=== PATIENT | male | born 1935 | race Caucasian/White ===

== ENCOUNTER → 2016-05-18 | Outpatient (CLI) | payer OTHER, MEDICARE ==
[~2016-05-18] MED LIST: IOPAMIDOL (ISOVUE 370) 100 ML BTL IV ONE
== END ==
LOC: CIMAGING 09:09
DX: I71.4 Abdominal aortic aneurysm, without rupture (principal); N20.0 Calculus of kidney
CPT/HCPCS: 74174; Q9967

== ENCOUNTER → 2017-09-02 | Outpatient (CLI) | payer OTHER, MEDICARE | LOC: BHFA 09:15 | PROVIDERS: ATTEND Internal Medicine Cardiovascular Disease | DX: R06.02 Shortness of breath (principal); I25.10 Atherosclerotic heart disease of native coronary artery without angina pectoris ==

== ENCOUNTER → 2017-09-06 | Outpatient (CLI) | payer OTHER, MEDICARE | LOC: FIMAGING 15:21 | PROVIDERS: ATTEND Internal Medicine Hematology & Oncology | DX: M79.604 Pain in right leg (principal); M79.605 Pain in left leg; M79.89 Other specified soft tissue disorders ==

== ENCOUNTER → 2017-09-13 | Outpatient (CLI) | payer OTHER, MEDICARE ==
[~2017-09-13] MED LIST changes: +GADOBUTROL 10 ML VIAL IVP ONE; -IOPAMIDOL (ISOVUE 370) 100 ML BTL IV ONE
== END ==
LOC: FIMAGING 16:50
PROVIDERS: ATTEND Internal Medicine Hematology & Oncology
DX: M16.11 Unilateral primary osteoarthritis, right hip (principal); M24.151 Other articular cartilage disorders, right hip; M84.351A Stress fracture, right femur, initial encounter for fracture; C79.51 Secondary malignant neoplasm of bone; C61 Malignant neoplasm of prostate
CPT/HCPCS: 73723; A9585

== ENCOUNTER 2018-02-07 09:02 | Inpatient (IN) | payer OTHER, MEDICARE ==
--- NOTE | 2018-02-07 09:22 | EDPHY ---
H & P Time Seen by Provider: 02/07/18 09:19 HPI/ROS: CHIEF COMPLAINT: Shortness of breath HISTORY OF PRESENT ILLNESS: Worsening over the past 2 months, now can't even get up or walk to the bathroom without assistance because he gets so dyspneic. He is even short of breath at rest, symptoms are severe. Describes about a week of cough productive of white sputum, but without chest pain or fever or chills. Associated with bilateral leg edema right greater than left. His right foot so edematous that yesterday the skin split open and now he has an open wound on the dorsum. REVIEW OF SYSTEMS: Eye: no change in vision ENT: no sore throat Cardiac: no chest pain or syncope Pulmonary: HPI Abdomen: no vomiting, diarrhea, abdominal pain Musculoskeletal: Leg edema Skin: Open wound right foot on the dorsum Neuro: no headache Constitutional: no fever : no urinary symptoms A comprehensive 10 point review of systems is otherwise negative aside from elements mentioned in the history of present illness. PAST MEDICAL HISTORY: Medical history includes hypertension, hypercholesterolemia, coronary disease and vascular disease with aortic and cardiac stents, knee replacement, COPD, hypothyroid. Recent treatment for prostate cancer metastatic to bone. Social history: Here with his and son General Appearance: Alert and conversant, cooperative. Eyes: No scleral icterus. ENT, Mouth: Normal mucous membranes. Respiratory: Bilateral expiratory wheezing with dyspnea, but is able to speak at rest. Cardiovascular: Regular rate and rhythm. Gastrointestinal: Abdomen is soft and non tender. Neurological: Alert, face symmetric, normal motor and sensory in extremities. Skin: Patient has open skin wound on the dorsum of the right foot 8x8 cm but no surrounding erythema or lymphangitis or pus or drainage. Musculoskeletal: Bilateral lower extremity edema 4+ on the right and 2+ on the left. Psychiatric: Not agitated. Emergency Department course/MDM: Treat for COPD with nebulizer treatments and IV steroids. Severe shortness of breath, not able to the the get out of bed or walk any distance in the house. EKG chest x-ray D-dimer and troponin. Hospitalist admission, symptomatic wound care. I do not think he has an acute cellulitis. I think pneumonia is unlikely given symptoms, lack of fever or elevated white blood cell count. Ultrasound of the right lower leg. 1051; feels better, less wheezy. Consider treating with Lovenox empirically 1 milligram/kilogram subcu until his renal function can tolerate angio CT scanning , or until nuclear imaging is available. Discussed with patient and family and consented. Creatinine although elevated is similar to his recent baseline. Needs cardiac evaluation as an inpatient, will notify [facility]. 1349: Discussed with Dana for [facility]. Smoking Status: Former smoker Constitutional: Initial Vital Signs Temperature (C) 36.5 C 02/07/18 09:17 Heart Rate 75 02/07/18 09:17 Respiratory Rate 18 02/07/18 09:17 Blood Pressure 140/115 H 02/07/18 09:17 O2 Sat (%) 92 02/07/18 09:17 O2 Delivery Mode Nasal Cannula O2 (L/minute) 3 Allergies/Adverse Reactions: No Known Allergies Allergy (Verified 02/07/18 09:13) Home Medications: Medication Instructions Recorded Atorvastatin Calcium [Lipitor 40 40 mg PO DAILY 08/31/16 mg (*)] Abiraterone Acetate [Zytiga] 500 mg PO DAILY 02/07/18 Aspirin [Aspirin 81mg (*)] 81 mg PO HS 02/07/18 Budesonide/Formoterol 80/4.5 2 puffs IH BID 02/07/18 [Symbicort 80-4.5 Mcg Inhaler] Herbals/Supplements -Info Only 1 ea PO DAILY 02/07/18 Leuprolide Acetate [Lupron Depot] 22.5 mg IM Q90D 02/07/18 Levothyroxine [Synthroid 100 mcg 100 mcg PO DAILY06 02/07/18 (*)] Tiotropium Inhaler [Spiriva 1 inh IH DAILY@12 02/07/18 Inhaler] Xgeva 1 each IJ Q30D 02/07/18 predniSONE 2.5 mg PO BID 02/07/18 Medical Decision Making - Diagnostics EKG Interpretation: 12-lead EKG interpreted by me; official reading is in computer system. My interpretation is sinus rhythm rate 95 with multi formed PVC and old anterior OH. Imaging Results: Imaging Impressions Chest X-Ray 02/07/18 09:33 Impression: 1. Bibasilar opacities, worse on the right, probably representing tiny effusions with pneumonia to be excluded clinically. 2. Osseous metastatic disease. Extremity Venous Study 02/07/18 09:34 Impression: Slightly limited study with no visible deep vein thrombosis. Findings discussed with DONNA CRAWLEY 02/07/2018 at 11:11. Imaging: Discussed imaging studies w/ call center receptionist Radiologist, I viewed and interpreted images myself Differential Diagnosis: Differential diagnosis considered for shortness of breath including but not limited to pulmonary infectious process, COPD, asthma, pulmonary embolus and congestive heart failure. Consult/Admit Bed Type: [facility] 1044 - Data Points Laboratory Results: Laboratory Results 02/07/18 09:30 02/07/18 09:30 02/07/18 02/07/18 02/07/18 09:35 09:30 09:30 WBC RBC Hgb Hct MCV MCH MCHC RDW Plt Count MPV Neut % (Auto) Lymph % (Auto) [place] % (Auto) Eos % (Auto) Baso % (Auto) Nucleat RBC Rel Count Absolute Neuts (auto) Absolute Lymphs (auto) Absolute Monos (auto) Absolute Eos (auto) Absolute Basos (auto) Absolute Nucleated RBC Immature Gran % Immature Gran # D-Dimer Sodium Potassium Chloride Carbon Dioxide Anion Gap BUN Creatinine Estimated GFR Glucose Calcium Iron 83.0 mcg/dL mcg/dL (49.0-199.0) TIBC 255 ug/dL L ug/dL (260-490) Iron Saturation 33 % % (20-55) Ferritin Pending POC Troponin I 0.11 ng/mL H ng/mL (0.00-0.08) NT-Pro-B Natriuret Pep Pending Procalcitonin Pending 02/07/18 02/07/18 02/07/18 09:30 09:30 09:30 WBC 8.55 10^3/uL 10^3/uL (3.80-9.50) RBC 3.19 10^6/uL L 10^6/uL (4.40-6.38) Hgb 10.3 g/dL L g/dL (13.7-17.5) Hct 32.0 % L % (40.0-51.0) MCV 100.3 fL H fL (81.5-99.8) MCH 32.3 pg pg (27.9-34.1) MCHC 32.2 g/dL L g/dL (32.4-36.7) RDW 13.7 % % (11.5-15.2) Plt Count 271 10^3/uL 10^3/uL (150-400) MPV 9.8 fL fL (8.7-11.7) Neut % (Auto) 78.2 % H % (39.3-74.2) Lymph % (Auto) 10.6 % L % (15.0-45.0) [place] % (Auto) 9.6 % % (4.5-13.0) Eos % (Auto) 0.8 % % (0.6-7.6) Baso % (Auto) 0.4 % % (0.3-1.7) Nucleat RBC Rel Count 0.0 % % (0.0-0.2) Absolute Neuts (auto) 6.69 10^3/uL H 10^3/uL (1.70-6.50) Absolute Lymphs (auto) 0.91 10^3/uL L 10^3/uL (1.00-3.00) Absolute Monos (auto) 0.82 10^3/uL H 10^3/uL (0.30-0.80) Absolute Eos (auto) 0.07 10^3/uL 10^3/uL (0.03-0.40) Absolute Basos (auto) 0.03 10^3/uL 10^3/uL (0.02-0.10) Absolute Nucleated RBC 0.00 10^3/uL 10^3/uL (0-0.01) Immature Gran % 0.4 % % (0.0-1.1) Immature Gran # 0.03 10^3/uL 10^3/uL (0.00-0.10) D-Dimer 3.39 ug/mLFEU H ug/mLFEU (0.00-0.50) Sodium 144 mEq/L mEq/L (135-145) Potassium 3.3 mEq/L mEq/L (3.3-5.0) Chloride 111 mEq/L H mEq/L (97-110) Carbon Dioxide 22 mEq/l mEq/l (22-31) Anion Gap 11 mEq/L mEq/L (6-14) BUN 27 mg/dL H mg/dL (7-23) Creatinine 1.6 mg/dL H mg/dL (0.7-1.3) Estimated GFR 41 Glucose 106 mg/dL H mg/dL (70-100) Calcium 8.2 mg/dL L mg/dL (8.5-10.4) Iron TIBC Iron Saturation Ferritin POC Troponin I NT-Pro-B Natriuret Pep Procalcitonin Medications Given: Discontinued Medications Albuterol (Proventil Neb) 3 ml IH EDNOW ONE Stop: 02/07/18 10:53 Last Admin: 02/07/18 11:11 Dose: 3 ml Albuterol/Ipratropium (Duoneb) 3 ml IH EDNOW ONE Stop: 02/07/18 09:34 Last Admin: 02/07/18 09:51 Dose: 3 ml Enoxaparin Sodium (Lovenox) 80 mg SC EDNOW ONE Stop: 02/07/18 10:53 Last Admin: 02/07/18 11:30 Dose: 80 mg Methylprednisolone Sodium Succinate (Solu-Medrol) 125 mg IVP EDNOW ONE Stop: 02/07/18 09:34 Last Admin: 02/07/18 09:51 Dose: 125 mg Point of Care Test Results: Chemistry 02/07/18 09:35 POC Troponin I 0.11 ng/mL H ng/mL (0.00-0.08) Departure - Departure Disposition: [facility] Inpatient Acute Clinical Impression: Chronic obstructive pulmonary disease with acute exacerbation Open wound of right foot Qualifiers: Encounter type: initial encounter Qualified Code(s): S91.301A - Unspecified open wound, right foot, initial encounter Condition: Fair
[2018-02-07] MEDS ORDERED: IPRATROPIUM/ALBUTEROL 3 ML DEYVIAL IH ONE (09:33)
[2018-02-07] MEDS ORDERED: methylPREDNISolone SOD SUCC 125 MG/2 ML VIAL IVP ONE (09:33)
[2018-02-07 09:41] LABS: PLATELET COUNT 271 10^3/uL (150-400)
--- NOTE | 2018-02-07 09:47 | CPEKG ---
Test Reason : OPEN Blood Pressure : / mmHG Vent. Rate : 088 BPM Atrial Rate : 088 BPM P-R Int : 197 ms QRS Dur : 084 ms QT Int : 392 ms P-R-T Axes : 076 044 000 degrees QTc Int : 475 ms Sinus rhythm Multiple premature complexes, vent & supraven Anterior infarct, old Confirmed by Mathew Lacey ([id number]) on 02/07/2018 9:47:10 AM Referred By: Confirmed By:Mathew Lacey
[2018-02-07] MEDS ORDERED: ENOXAPARIN 80 MG/0.8 ML SYR SC ONE (10:52)
[2018-02-07] MEDS ORDERED: ALBUTEROL 3 ML DEYVIAL IH ONE (10:52)
[2018-02-07] MEDS ORDERED: ACETAMINOPHEN 325 MG TAB PO PRN (11:15)
[2018-02-07] MEDS ORDERED: ONDANSETRON 4 MG/2 ML VIAL IVP PRN (11:15)
[2018-02-07] MEDS ORDERED: HYDROCODONE/APAP 5/325 TAB PO PRN (11:15)
[2018-02-07] MEDS ORDERED: ALBUTEROL 3 ML DEYVIAL IH PRN (11:15)
[2018-02-07] MEDS ORDERED: ONDANSETRON DISINTEGRATING 4 MG TAB PO PRN (11:15)
--- NOTE | 2018-02-07 12:47 | PDGENHP ---
History and Physical - Chief Complaint SOB - History of Present Illness 82 yo male with h/o COPD, CAD, ischemic cardiomyopathy and presents to ED with SOB. He reports increased swelling over past few days along with worsening SOB. He denies CP or chest pressure. He denies orthopnea, but reports increased LE edema. No PND. He notes weight gain, but his begs to differ , thinks his weight has been stable. He endorses cough, which is chronic and productive of sputum. Over the past month, his cough is worse with increased sputum production. He denies fevers or chills. He is followed by Dr. Martinez for his COPD. He sees Dr. Pickens for his heart disease. In addition, he has a h/o prostate cancer with bone mets and is on Zytiga. He also has h/o vascular disease and underwent endovascular repair of an abdominal aortic aneurysm History Information - Allergies/Home Medication List Allergies/Adverse Reactions: No Known Allergies Allergy (Verified 02/07/18 09:13) Home Medications: Atorvastatin Calcium [Lipitor 40 mg (*)] 40 mg PO DAILY 09/01/15 [Last Taken ] Abiraterone Acetate [Zytiga] 500 mg PO DAILY 02/07/18 [Last Taken 02/07/18] Aspirin [Aspirin 81mg (*)] 81 mg PO HS 02/07/18 [Last Taken 02/06/18] Budesonide/Formoterol 80/4.5 [Symbicort 80-4.5 Mcg Inhaler] 2 puffs IH BID 02/07 [Last Taken 02/06/18 21:00] Herbals/Supplements -Info Only 1 ea PO DAILY 02/07/18 [Last Taken Unknown] Leuprolide Acetate [Lupron Depot] 22.5 mg IM Q90D 02/07/18 [Last Taken 2 Months Ago ~12/08/17] Levothyroxine [Synthroid 100 mcg (*)] 100 mcg PO DAILY06 02/07/18 [Last Taken ] Tiotropium Inhaler [Spiriva Inhaler] 1 inh IH DAILY@12 02/07/18 [Last Taken ] Xgeva 1 each IJ Q30D 02/07/18 [Last Taken 01/31/18] predniSONE 2.5 mg PO BID 02/07/18 [Last Taken 02/06/18 21:00] I have personally reviewed and updated: family history, medical history, social history, surgical history - Past Medical History coronary artery disease, COPD, hypertension, hyperlipidemia, peripheral artery disease Additional medical history: AAA - endovascular repair 2011, leak repaired [address] Jimmy Amos. Prostate cancer with osseous mets. LBP. Anemia. CKD - Surgical History Reports: appendectomy, coronary stent Additional surgical history: Coronary artery stent x2 2005. Left LADONNA. AAA - endovascular repair 2011, leak repaired 03/[address] Jimmy Amos. DDD, lumbar stenosis - Family History Positive for: non-pertinent - Social History Smoking Status: Former smoker Drug Use: None Additional social history: Lives independently with his , who is at bedside Review of Systems Review of Systems: ROS: 10pt was reviewed & negative except for what was stated in HPI & below Physical Exam Physical Exam: Temp Pulse Resp BP Pulse Ox 36.7 C 81 16 146/82 H 96 02/07/18 12:08 02/07/18 12:08 02/07/18 12:08 02/07/18 12:08 02/07/18 12:08 O2 (L/minute) 3 Constitutional: no apparent distress Eyes: PERRL Ears, Nose, Mouth, Throat: moist mucous membranes Cardiovascular: regular rate and rhythym, no murmur, rub, or gallop, JVD Respiratory: no respiratory distress, reduced air movement, expiratory wheeze, inspiratory crackles Gastrointestinal: normoactive bowel sounds, soft, non-tender abdomen Skin: warm Musculoskeletal: full muscle strength, other (Right dorsum of foot with denuded vesicle, no erythema or purulence) Neurologic: AAOx3 Psychiatric: interacting appropriately Lab Data & Imaging Review 02/07/18 09:30 02/08/18 03:38 WBC 8.55 10^3/uL (3.80-9.50) 02/07/18 09:30 RBC 3.19 10^6/uL (4.40-6.38) L 02/07/18 09:30 Hgb 10.3 g/dL (13.7-17.5) L 02/07/18 09:30 Hct 32.0 % (40.0-51.0) L 02/07/18 09:30 MCV 100.3 fL (81.5-99.8) H 02/07/18 09:30 MCH 32.3 pg (27.9-34.1) 02/07/18 09:30 MCHC 32.2 g/dL (32.4-36.7) L 02/07/18 09:30 RDW 13.7 % (11.5-15.2) 02/07/18 09:30 Plt Count 271 10^3/uL (150-400) 02/07/18 09:30 MPV 9.8 fL (8.7-11.7) 02/07/18 09:30 Neut % (Auto) 78.2 % (39.3-74.2) H 02/07/18 09:30 Lymph % (Auto) 10.6 % (15.0-45.0) L 02/07/18 09:30 [place] % (Auto) 9.6 % (4.5-13.0) 02/07/18 09:30 Eos % (Auto) 0.8 % (0.6-7.6) 02/07/18 09:30 Baso % (Auto) 0.4 % (0.3-1.7) 02/07/18 09:30 Nucleat RBC Rel Count 0.0 % (0.0-0.2) 02/07/18 09:30 Absolute Neuts (auto) 6.69 10^3/uL (1.70-6.50) H 02/07/18 09:30 Absolute Lymphs (auto) 0.91 10^3/uL (1.00-3.00) L 02/07/18 09:30 Absolute Monos (auto) 0.82 10^3/uL (0.30-0.80) H 02/07/18 09:30 Absolute Eos (auto) 0.07 10^3/uL (0.03-0.40) 02/07/18 09:30 Absolute Basos (auto) 0.03 10^3/uL (0.02-0.10) 02/07/18 09:30 Absolute Nucleated RBC 0.00 10^3/uL (0-0.01) 02/07/18 09:30 Immature Gran % 0.4 % (0.0-1.1) 02/07/18 09:30 Immature Gran # 0.03 10^3/uL (0.00-0.10) 02/07/18 09:30 D-Dimer 3.39 ug/mLFEU (0.00-0.50) H 02/07/18 09:30 Sodium 144 mEq/L (135-145) 02/07/18 09:30 Potassium 3.3 mEq/L (3.3-5.0) 02/07/18 09:30 Chloride 111 mEq/L (97-110) H 02/07/18 09:30 Carbon Dioxide 22 mEq/l (22-31) 02/07/18 09:30 Anion Gap 11 mEq/L (6-14) 02/07/18 09:30 BUN 27 mg/dL (7-23) H 02/07/18 09:30 Creatinine 1.6 mg/dL (0.7-1.3) H 02/07/18 09:30 Estimated GFR 41 02/07/18 09:30 Glucose 106 mg/dL (70-100) H 02/07/18 09:30 Calcium 8.2 mg/dL (8.5-10.4) L 02/07/18 09:30 POC Troponin I 0.11 ng/mL (0.00-0.08) H 02/07/18 09:35 Visualized and Interpreted Chest x-ray results: Yes Chest X-Ray results: other (suspect early pulmonary edema) Visualized and Interpreted EKG results: Yes EKG Interpretation: Positive for: normal sinsus rhythm, NS ST wave abnormalities Assessment & Plan Assessment: Dyspnea - DDx: acute heart failure, COPD exacerbation, PE, ACS. BNP 01/30 was elevated >4K. CXR by my read appears a bit wet and clinically he is volume overloaded with LE edema and JVD. -admit to PCU for diuresis, IV Lasix -send bnp -echo ordered, last EF 43% by outside record review -monitor I&O's, daily weights -trend troponin -cardiology consulted, discussed with Dr. Jewell -obtain V/Q scan to r/o PE given h/o cancer and elevated d dimer. He received 1 mg/kg Lovenox in ED -COPD management as below CAD / ICM - prior stent in 2007, EF 43% -trend trop, rpt echo -cont ASA, statin -review of outpt records shows he was on bisoprolol and enalapril, though it seems he is not currently taking these -likely restart BB, defer bernard for now with NOHEMI -will plan for inpt risk stratification, likely with lexiscan prior to dc COPD - will treat for acute exacerbation given increased cough and sputum production, doubt PNA -nebs, prednisone, doxy AHRF - 2/2 above, not on O2 at home, 3 LPM on arrival -treating for HF, COPD and r/o PE as above -wean O2 as able LE edema - suspect related to HF. Zytiga can cause this, which is held -echo, diuresis as above -wound care for rt foot open blister, no e/o infection NOHEMI / CKD - Prior to 09/2017, Cr was normal, but has risen to baseline of 1.7-2 since then -monitor closely with diuretics -avoid nephrotoxins Anemia - this appears chronic, stable, no e/o active bleeding -send iron studies Hypertension - fair control -likely restart bb, unclear why this was stopped Hyperlipidemia - cont statin Prostate cancer with osseous mets - prior femoral head stress fracture -hold zytiga for now -will alert oncology of admission AAA - s/p endovascular [place] [address] Amos, possible endoleak noted on previous CTA in 2017, with thrombosed sac up to 7.4 cm, asymptomatic -plan to repeat CTA here DVT PPLX - received lovenox in ED, will continue at either pplx or therapeutic dose pending results of VQ scan Code status - discussed at length with pt and . He wishes to remain full code at this time, but will think it over Dispo - inpt, anticipate >48 hrs hospitalization for ongoing management of hypoxemia, HF, COPD and heart disease
--- NOTE | 2018-02-07 14:10 | PDMN ---
Medical Necessity Medical necessity: [facility] [place]190 Heart Failure A-2 days: 82 yo presents w/ dyspnea could be r/t acute heart failure, COPD exacerbation, PE, ACS. BNP 01/30 was elevated >4K. elevated D-dimer. CXR shows volume overload, LE edema and JVD also. Baseline pt does not need O2, requires O2 for hypoxemia to maintain sats> 90% IV diuresis started. Dispo - inpt, anticipate >48 hrs hospitalization for ongoing management of hypoxemia, HF, COPD and heart disease. Hx CAD, COPD, HTN , HLD, peripheral artery disease, AAA - endovascular repair 2011, leak repaired 03/2015, Prostate ca w/ bone mets. LBP. Anemia. CKD, Coronary artery stent x2 2005. Left LADONNA. DDD, lumbar stenosis.
[2018-02-07] MEDS: predniSONE 20 MG TAB PO SCH (14:15)
[2018-02-07] MEDS: DOXYCYCLINE HYCLATE 100 MG CAP/TAB PO SCH ×2 (14:16→20:32)
[2018-02-07] MEDS: FUROSEMIDE 40 MG/4 ML VIAL IVP SCH (14:17)
[2018-02-07] MEDS: IPRATROPIUM/ALBUTEROL 3 ML DEYVIAL IH SCH ×3 (14:25→21:10)
--- NOTE | 2018-02-07 17:07 | ECHO ---
[email or web address] [address] Main: [phone] Fax: Transthoracic Echocardiogram Name: OMAIRA GARCIA MR#: [id number] Study Date: 02/07/2018 Study Time: 11:36 AM Date of : 1935 Age: 82 year(s) Height: 177.8 cm (70 in.) Weight: 88 kg (194 lb.) BSA: 2.06 m2 Gender: Male Examination: Echo Indication: Shortness of breath, LE edema Image Quality: Adequate Contrast: Requested by: Annita Loaiza BP: 156 mmHg/89 mmHg Heart Rate: Rhythm: Indication: Shortness of breath, LE edema Procedure Staff Senior Safety Support Manager: Maria Fernanda Selby RDCS Reading Physician: Tg Jewell MD Requesting Provider: Conclusions: Normal size left ventricle. No LV hypertrophy. Low normal left ventricular systolic function. The ejection fraction is estimated to be 50-55 %. Normal size right ventricle. Normal RV function. Mild mitral valve regurgitation is present. Mild aortic valve regurgitation is present. Compared with 08/2017 overall similar findings. On prior study the ascending aorta was better visualized and was 4.1 cm Measurements: Chambers Valvular Assessment AV/MV Valvular Assessment TV/PV Normal Normal Normal Name Value Range Name Value Range Name Value Range Ao Sherice (2D): 3.3 cm (1.4 cm-2.6 AV Vmax: 1.34 m/s (1 m/s-1.7 PV Vmax: 0.73 m/s (0.6 m/s-0.9 cm) m/s) m/s) IVSd (2D): 1.0 cm (0.6 cm-1.1 AV maxP mmHg ( - ) PV PGmax: 2 mmHg ( - ) cm) AV meanP mmHg ( - ) LVDd (2D): 5.1 cm (4.2 cm-5.9 LVOT Vmax: 0.86 m/s (0.7 m/s-1.1 cm) m/s) LVDs (2D): 3.2 cm (2.1 cm-4 GINNY (Vmax): 2.2 cm2 ( - ) cm) GINNY (VTI): 2.6 cm ( - ) LVPWd (2D): 1.0 cm (0.6 cm-1 MV E Vmax: 0.66 m/s ( - ) cm) MV A Vmax: 0.78 m/s ( - ) LVOTd 2.1 cm 2.1 cm mm MV E/A: 0.85 ( - ) LVEF (BP): 50 % (>=55 %) MV PHT: 0.085 s ( - ) EF Range: 50-55 % MVA (PHT): 2.6 s ( - ) RVDd(2D): 3.5 cm (1.9 cm-3.8 cmmm) Patient: OMAIRA GARCIA Study Date: 02/07/2018 Page 1 of 2 11:36 AM Continued Measurements: Chambers Valvular Assessment AV/MV Name Value Name Value LADs: 3.9 cm MV DecTime: 264 m/s LADs Lon.2 cm MV E/E' Lateral: 6.70 LA Area: 19.1 cm2 LA Volume: 50 ml LA Volume Index: 24.3 ml/m2 RA Area: 17.8 cm2 Additional Vessels Name Value Inferior Vena Cava: 1.5 cm Findings: Left Ventricle: Normal size left ventricle. No LV hypertrophy. Low normal left ventricular systolic function. The ejection fraction is estimated to be 50-55 %. Unable to assess diastolic dysfunction. Subtle inferior hypokinesis. Right Ventricle: Normal size right ventricle. Normal RV function. Left Atrium: The left atrium is normal in size. Right Atrium: The right atrium is normal in size. Mitral Valve: The mitral valve is normal in appearance and function. Mild mitral valve regurgitation is present. No mitral stenosis is present. Aortic Valve: The aortic valve is tri-leaflet. Mild aortic valve regurgitation is present. No aortic valve stenosis is present. Tricuspid Valve: The tricuspid valve is normal in appearance and function. Trivial tricuspid valve regurgitation. Pulmonic Valve: The pulmonic valve is normal in appearance and function. There is no pulmonic regurgitation seen. Aorta: The aorta is normal. Normal size aortic root measuring 3.3 cm. IVC: The IVC is normal sized. Pericardium: Trivial pericardial effusion. No pleural effusion. (No Signature Object) Patient: OMAIRA GARCIA Study Date: 02/07/2018 Page 2 of 2 11:36 AM [id number]
[2018-02-07] MEDS ORDERED: IOPAMIDOL (ISOVUE 370) 100 ML BTL IV ONE (17:43)
[2018-02-07] MEDS: ASPIRIN 81 MG CHEWABLE TAB PO SCH (20:32)
[2018-02-07] MEDS: BISOPROLOL FUMARATE 5 MG TAB PO SCH (20:33)
[2018-02-07] MEDS: BUDESONIDE/FORMOTEROL 80/4.5 60 PUFFS/MDI IH SCH (21:10)
[2018-02-08] MEDS: LEVOTHYROXINE 100 MCG TAB PO SCH (05:35)
[2018-02-08] MEDS: IPRATROPIUM/ALBUTEROL 3 ML DEYVIAL IH SCH ×4 (05:42→20:17)
[2018-02-08] MEDS ORDERED: PROTOCOL MAGNESIUM 1 DOSE IV PRN (09:00)
[2018-02-08] MEDS ORDERED: PROTOCOL POTASSIUM 1 DOSE MISC PRN (09:00)
[2018-02-08] MEDS ORDERED: FUROSEMIDE 40 MG/4 ML VIAL IVP SCH (09:01)
[2018-02-08] MEDS: BISOPROLOL FUMARATE 5 MG TAB PO SCH (09:25)
[2018-02-08] MEDS: ATORVASTATIN CALCIUM 40 MG TAB PO SCH (09:25)
[2018-02-08] MEDS: DOXYCYCLINE HYCLATE 100 MG CAP/TAB PO SCH ×2 (09:26→20:40)
[2018-02-08] MEDS: predniSONE 20 MG TAB PO SCH (09:26)
[2018-02-08] MEDS: FUROSEMIDE 40 MG/4 ML VIAL IVP SCH ×3 (09:31→15:24)
--- NOTE | 2018-02-08 10:57 | GCON ---
CARDIOLOGY CONSULTATION DATE OF CONSULTATION: 02/08/2018 REFERRING PHYSICIAN: Annita Loaiza MD REASON FOR CONSULTATION: We were asked by Dr. Annita Loaiza to evaluate the patient for his CHF exac erbation. HISTORY OF PRESENT ILLNESS: The patient is an 82-year-old male, new to me, but followed at [facility]. He has a history of COPD, former tobacco abuse, having quit many years ago, CAD, ischemic card iomyopathy, metastatic prostate cancer, who was admitted through the ED for worsening shortness of br eath. He reports a several-month history of shortness of breath. This is associated with peripheral edema. He denies any PND, orthopnea, palpitations, chest pain, presyncope, syncope. At time of adm ission, he noted that he was short of breath just walking 20 feet. He denies any associated cough, h emoptysis, diminished appetite, fever, or chills. HOME MEDICATIONS: Include atorvastatin, Zytiga, aspirin, Symbicort, Lupron, levothyroxine, Spiriva, Xgeva, prednisone. PAST MEDICAL HISTORY: 1. CAD with PCI to the circumflex and obtuse marginal in 2005. 2. COPD. 3. Hypertension. 4. Dyslipidemia. 5. Peripheral arterial disease with an endovascular repair for AAA in 2011, with a leak repair in . 6. Prostate cancer with osseous metastases. 7. Anemia. 8. Chronic kidney disease. PAST SURGICAL HISTORY: Appendectomy, left hip replacement, endovascular repair for AAA with leak rep air, and lumbar surgery. FAMILY HISTORY: Reviewed. SOCIAL HISTORY: Patient is a former smoker. He reports very occasional alcohol. REVIEW OF SYSTEMS: As per HPI. A complete 10-point review of systems was obtained and is negative, except for what is dictated. ALLERGIES: No known drug allergies. PHYSICAL EXAM: VITAL SIGNS: BP of 121/68, heart rate of 81, respirations 16, O2 saturation 99% on 2 L/minute, temp of 98.5 degrees Fahrenheit. GENERAL: He is a very pleasant elderly male in no appar ent distress. HEENT: Head is normocephalic, atraumatic. Eyes are without scleral icterus. Pupils are round and reactive. HEART: Regular rate and rhythm, with no rubs, gallops, or murmurs. LUNGS: Diminished, with minimal bibasilar crackles. ABDOMEN: Distended, nontender, with normoactive bowel sounds. : No Grider present. SKIN: Warm and dry. There is 2 to 3+ pitting edema all the way in to his thighs. Right foot has bandaging. PSYCH: Normal mood and affect. NEURO: No focal deficits detected. Telemetry personally interpreted reveals sinus rhythm with frequent PVCs. LABORATORY DATA: BMP with sodium 144, potassium 3.9, chloride 110, CO2 24, BUN 28, creatinine 1.5, g lucose of 136. Troponin at 0.141, then 0.11, then 0.131. NT-proBNP of 5250. Procalcitonin is low a t 0.07. CBC with WBC 8.55, hemoglobin 10.3, hematocrit 32.0, platelet count of 271. D-dimer of 3.39 . CTA of chest reveals no evidence of PE. There are small right and trace left pleural effusions. There is severe central lobular emphysema, diffuse osseous metastatic disease, and there is an indete rminate 2 mm right lower lobe nodule. Nuclear medicine scan was high probability with an indetermina te scan with large matched uptake involving the right upper lobe. Lower extremity Dopplers showed no evidence of DVT. Previous records from our office were reviewed. Echo from 09/02/2017, showed an E F of 43%, mild global hypokinesis, mild concentric LVH, mild biatrial enlargement. Ascending aorta m easures 4.1 cm. Repeat echo on this admission shows EF of 50%, with inferior hypokinesis, mild MR, m ild aortic regurgitation. Last nuclear stress test from our office was 04/2011, with an EF of 42%, p revious TN affecting the basal and mid inferior jones, with mild marium-infarct ischemia. A 12-lead EC G from 02/07/2018, personally interpreted, reveals sinus rhythm with 1 PVC. There is borderline QTc prolongation, first-degree AV block, and a delayed R-wave progression. I have reviewed the patient's care with Dr. Qiana Meehan and Dr. Annita Loaiza. Chest x-ray shows, from 02/07/2018, bibasilar opacities, worse on right, likely representing pleural effusions. ASSESSMENT AND PLAN: The patient is an 82-year-old male typically followed by Dr. Jamarcus Pickens in our office, who presents with worsening dyspnea. 1. Systolic congestive heart failure. This is evidenced by an NT-proBNP that is elevated, pleural e ffusions, peripheral edema, and dyspnea on exertion. His outpatient medications had been changed, an d he had discontinued his enalapril and bisoprolol. We reviewed the importance of medical management , including RUFUS inhibitor or ARB and beta blockade. He understands. He had not been on an outpatien t diuretic. He will be started on increased doses of IV Lasix. 2. Coronary artery disease. He has a history of previous percutaneous coronary intervention in 2005 . His last MPI has now been several years ago. He has a minimally elevated troponin, which may be r elated to his systolic CHF. We discussed possibly obtaining a nuclear stress test prior to discharge . This can be done also in the outpatient setting. He has no symptoms suggestive of angina. He is appropriately medically managed with aspirin and statin. We will resume his bisoprolol and consider resumption of his enalapril. 3. Chronic obstructive pulmonary disease. This is being managed by the hospitalist service. 4. Acute hypoxic respiratory failure. This is multifactorial from his systolic congestive heart reji lure and likely chronic obstructive pulmonary disease exacerbation. He may continue current breathin g treatments. 5. Chronic kidney disease. His creatinine is currently stable at 1.5. We will follow his creatinin e with the increased dose of his diuretic. 6. Abdominal aortic aneurysm. His last CTA of his abdomen was May of 2016, with a type 2 endoleak and mild enlargement of his saccular aneurysm. I have reviewed this with Dr. Qiana Meehan, and he r ecommends a repeat CTA prior to patient's discharge. This will be ordered in the next 1-2 days. 7. Hypertension. His blood pressure is not at goal for systolic congestive heart failure. His biso prolol has been resumed. His blood pressure readings are improved. If blood pressure permits and ki dney function is stable, his enalapril will also be resumed. 8. Anemia. This has apparently been stable. This will be followed serially through hospitalization and as outpatient. 9. Dyslipidemia. With his history of coronary artery disease, he is on statin therapy. His LDL was last measured this year, and it was at goal at 75 mg/dL. We will follow along in patient's care dur ing this hospitalization. /[id number]/MODL
[2018-02-08] MEDS: BUDESONIDE/FORMOTEROL 80/4.5 60 PUFFS/MDI IH SCH ×2 (11:07→20:16)
--- NOTE | 2018-02-08 12:22 | ASMTCMCOM ---
CM Note CM Note Notes: Pt is a 82 y/o man admitted for shortness of breathe. Pt with a hx of COPD, CAD, ischemic cardiomyopathy. Pt is edematous. PT and wound care has been ordered. Needs are TBD at this time. CM to follow. Plan: TBD Date Signed: 02/08/2018 12:20 PM Electronically Signed By:WES Sandoval
[2018-02-08] MEDS ORDERED: POTASSIUM CL 10 MEQ TAB PO ONE ×2 (14:23→19:57)
[2018-02-08] MEDS ORDERED: MAGNESIUM SULF 2 GM/WATER 50 ML IV ONE (14:25)
[2018-02-08] MEDS: guaiFENesin 600 MG TAB.ER PO SCH ×2 (14:31→20:39)
--- NOTE | 2018-02-08 15:06 | WOCRNPDOC ---
WOCRN Advanced Assessment Note - Skin Integrity Problem, Advanced Assess Right Dorsal Foot Blister Dressing Type: ABD Pad, Kerlix, Vaseline Gauze Dressing Dressing Description: Saturated Exudate Amount: Excessive Exudate Color: Yellow Exudate Characteristic(s): Clear, Serous Integumentary Issue Intervention: Dressing Changed Wound Bed Constitution: Red/[place] - Non Granular Tissue (100%), De-roofed Serous Blister Site Measurement - Head-to-Toe Length X Width X Depth (cm): 7x10.4x0.1 Skin Integrity Problem Comment: Patient injured foot under cigar sorter several days ago. Per his report he de roofed the blister accidently at home on Tuesday. It is a rather large partial thickness wound that is draining copious fluid due to the edema in his legs. Recommended keeping foot elevated as much as possible. Wound manipilation is painful. Dressing changes with hydrofiber and super absorbant will be initiated, though if edema reduces in his legs the drainage may slow down and orders may need to be altered. Also recommend patient follow up at outpatient wound healing center to ensure wound is healing well. Discussed this all with the patient and all questions were answered. Patient may beneifit from post op boot for right foot until wound epithelizes. Wound care will follow.
--- NOTE | 2018-02-08 16:06 | HOSPPROG ---
Hospitalist Progress Note Assessment/Plan: Dyspnea / AHRF - 3 LPM. Treating for acute sHF and COPD. CTA neg for PE. -cont IV Lasix, monitor I&O's, daily wts -cont nebs, prednisone, doxy CAD / ICM - prior stent in 2007, EF previously 43%, now 50-55% -cont ASA, statin, BB -defer bernard for now with NOHEMI -lexiscan prior to dc -cards following LE edema - suspect 2/2 HF. Zytiga can also cause this, which is held -echo, diuresis as above -wound care for rt foot open blister, no e/o infection NOHEMI / CKD - Prior to 09/2017, Cr was normal, but has risen to baseline of 1.7-2 since then, currently 1.5 -monitor closely with diuretics and contrast -avoid nephrotoxins Hypertension - controlled -cont BB Hyperlipidemia - cont statin Prostate cancer with osseous mets - prior femoral head stress fracture -holding zytiga for now -alerted Dr. Cortez of admission, ok to call him with questions, but o/w can have outpt f/u with onc AAA - s/p endovascular [place] [address] Amos, possible endoleak noted on previous CTA in 2016, with thrombosed sac up to 7.4 cm, asymptomatic -repeat CTA in am Anemia - likely ACD, stable, no active bleeding DVT PPLX - Lovenox Code status - discussed at length with pt and . He wishes to remain full code at this time, but will think it over Dispo - cont inpt Subjective: Pt feels a little better, breathing a bit improved. Coughing still , but less sputum production, feels like phlegm in his throat won't clear. No CP. No SOB at rest. No fevers/chills. Objective: Vital Signs Temp Pulse Resp BP Pulse Ox 36.7 C 89 15 129/64 H 96 02/08/18 15:45 02/08/18 15:45 02/08/18 15:45 02/08/18 15:45 02/08/18 15:45 Laboratory Results 02/08/18 03:38 02/07/18 02/08/18 02/09/18 05:59 05:59 05:59 Intake Total 1100 360 Output Total 1750 1050 Balance -650 -690 - Physical Exam Constitutional: no apparent distress Eyes: PERRL Ears, Nose, Mouth, Throat: moist mucous membranes Cardiovascular: regular rate and rhythym Respiratory: no respiratory distress, reduced air movement, expiratory wheeze Gastrointestinal: normoactive bowel sounds, soft, non-tender abdomen Skin: warm Musculoskeletal: full muscle strength, other (2+ LE pitting edema to thighs b/l , improved since yesterday) Neurologic: AAOx3 Psychiatric: interacting appropriately ICD10 Worksheet Patient Problems: Problems Problem Status Onset Chronic obstructive pulmonary disease with acute exacerbation Acute Open wound of right foot Acute chronic disease mgmt/transitional care Acute
[2018-02-08] MEDS: ENOXAPARIN 40 MG/0.4 ML SYR SC SCH (17:02)
[2018-02-08] MEDS: ASPIRIN 81 MG CHEWABLE TAB PO SCH (20:39)
[2018-02-09] MEDS: IPRATROPIUM/ALBUTEROL 3 ML DEYVIAL IH SCH ×4 (05:18→20:55)
[2018-02-09] MEDS: BUDESONIDE/FORMOTEROL 80/4.5 60 PUFFS/MDI IH SCH ×2 (05:19→20:55)
[2018-02-09] MEDS: LEVOTHYROXINE 100 MCG TAB PO SCH (07:10)
[2018-02-09] MEDS ORDERED: POTASSIUM CL 10 MEQ TAB PO ONE (07:55)
[2018-02-09] MEDS ORDERED: MAGNESIUM SULF 1 GM/DEXTROSE 100 ML IV ONE (07:56)
[2018-02-09] MEDS: guaiFENesin 600 MG TAB.ER PO SCH ×2 (08:37→20:47)
[2018-02-09] MEDS: ATORVASTATIN CALCIUM 40 MG TAB PO SCH (08:38)
[2018-02-09] MEDS: DOXYCYCLINE HYCLATE 100 MG CAP/TAB PO SCH ×2 (08:38→20:47)
[2018-02-09] MEDS: predniSONE 20 MG TAB PO SCH (08:38)
[2018-02-09] MEDS: ENOXAPARIN 40 MG/0.4 ML SYR SC SCH (08:39)
[2018-02-09] MEDS: BISOPROLOL FUMARATE 5 MG TAB PO SCH (08:39)
[2018-02-09] MEDS: FUROSEMIDE 40 MG/4 ML VIAL IVP SCH ×2 (08:40→15:23)
--- NOTE | 2018-02-09 10:39 | PDCARPN ---
Cardiology Progress Note Chief Complaint: SCHF Assessment/Plan: Assessment: 82M PMH CAD with PCI to LCx/OM in 2006; ICM with EF typically in 40s%; htn; overweight BMI 28; COPD; PVD with AAA and endovascular repair in 2011 and leak repair in 2016; prostate CA with osseous mets; anemia; frequent PVCs; CKD; now admitted with worsening dyspnea. Echo from this admission shows stable/low normal EF, inferior HK, mild MR/AR. EKG shows SR, borderline QTC prolongation, 1st degree AVB, and dleayed RWP #. SCHF: acute on chronic diuresing well will continue IV Lasix for today #. AAA: we discussed that he is overdue for a repeat CTA will order this today he requests copy of report be sent to Dr. Jimmy Amos at [facility] #. CAD: no symptoms suggestive of angina will order MPI for tomorrow in setting of mildly elevated troponin #. htn: BP improved we reviewed goals of BP in SCHF will titrate his Bisoprolol further today defer resumption of Enalapril in setting of needing CTA #. R foot dorsal blister due to edema will continue diuresis refer to wound clinic at time of discharge to follow on wound care #. metastatic prostate CA pt's Dolores in the room today is concerned about the prostate CA medications causing the issues currently QTC prolongation can be seen with Lupron Edema can be seen with Zytiga Hypertension, edema and hypocalcemia may be seen with Xgeva will review with hospitalist whether an oncology consult is warranted in this admission (pt not getting these meds currently) #. PVCs: frequent on monitoring increase BB to see if we can decrease the frequency #. COPD: per hospital med Plan: - increase Bisoprolol - continue IV diuresis - CTA abdomen - ? oncology consult 02/09/18 10:40 Subjective: Noting frequent urination. No cp. Dyspnea and edema improving. Reviewed/Discussed With: hospitalist Objective: Vital Signs (8 Hrs) Temp Pulse Resp BP Pulse Ox 02/09/18 08:36 98.1 F 88 15 128/89 H 94 02/09/18 05:21 88 18 2 L 02/09/18 04:00 98.4 F 84 16 123/78 H 93 Intake/Output (24 Hrs) 02/08/18 02/09/18 02/10/18 05:59 05:59 05:59 Intake Total 1100 1550 Output Total 1750 3724 425 Balance -543 -0133 -425 Intake: Oral (ml) 1100 1500 IV Infused (ml) 0 50 Magnesium Sulf 2 gm/Water 50 50 ml @ 50 mls/hr IV ONCE ONE Rx#:[id number] Output: Urine (ml) 1750 3324 425 Bedside Commode 400 Incontinence 1050 Toilet 300 Urinal 1350 1975 425 Other: Weight 90 kg 88.6 kg Output Comment Incontinence large amount Urinal some incontinence also Number of Voids Incontinence 1 3 Toilet 1 Urinal 1 1 1 Number of Stools Toilet 1 Result Diagrams: 02/07/18 09:30 02/09/18 03:45 Cardiac Labs: Cardiac Lab Results (72 Hrs) 02/07/18 16:40 Troponin I 0.131 H - Physical Exam Constitutional: no apparent distress Eyes: PERRL, anicteric sclera Ears, Nose, Mouth, Throat: moist mucous membranes Cardiovascular: regular rate and rhythm (distant heart sounds) Respiratory: clear to auscultate bilat, reduced air movement, No expiratory wheeze, No inspiratory crackles Gastrointestinal: normoactive bowel sounds, other (distended) Skin: warm, erythema, other (R foot is bandaged) Neurologic: AAOx3 Psychiatric: cooperative, interactive ICD10 Worksheet Patient Problems: Problems Problem Status Onset Chronic obstructive pulmonary disease with acute exacerbation Acute Open wound of right foot Acute chronic disease mgmt/transitional care Acute
[2018-02-09] MEDS ORDERED: IOPAMIDOL (ISOVUE 370) 100 ML BTL IV ONE (10:55)
--- NOTE | 2018-02-09 13:43 | HOSPPROG ---
Hospitalist Progress Note Assessment/Plan: 82 yo M w multiple comorbidities a/w dyspnea Dyspnea / AHRF - 3 LPM. Treating for acute sHF and COPD. CTA neg for PE. -cont IV Lasix, monitor I&O's, daily wts -cont nebs, prednisone, doxy CAD / ICM - prior stent in 2007, EF previously 43%, now 50-55% -cont ASA, statin, BB -defer bernard for now with NOHEMI -lexiscan prior to dc -cards following LE edema - suspect 2/2 HF. Zytiga can also cause this, which is held -echo, diuresis as above -wound care for rt foot open blister, no e/o infection NOHEMI / CKD - Prior to 09/2017, Cr was normal, but has risen to baseline of 1.7-2 since then, currently 1.5 -monitor closely with diuretics and contrast -avoid nephrotoxins Hypertension - controlled -cont BB Hyperlipidemia - cont statin Prostate cancer with osseous mets - prior femoral head stress fracture -holding zytiga for now -alerted Dr. Cortez of admission, ok to call him with questions, but o/w can have outpt f/u with onc AAA - s/p endovascular [place] [address] Amos, possible endoleak noted on previous CTA in 2017, with thrombosed sac up to 7.4 cm, asymptomatic -repeat CTA shows slightly enlarging sac, no clear leak, although no non con images non con image in 1-2 days to see if leak. RP bleed: no sx per radiology, unlikely to be related to AAA. multiple interventions noted spoke w dr dickinson- he will review images/see patient cyst: has been biopsied in past d/w dr payne Subjective: case d/w yoan jiménez, cardiology [employer]. edema decreased. symptomatically improved. CTA w : 1. enlarging aaa sac w no clear leak. 2, small rp bleed. 3. enlarging cyst in pancreas Objective: Vital Signs Temp Pulse Resp BP Pulse Ox 36.7 C 74 16 107/57 L 95 02/09/18 11:31 02/09/18 11:31 02/09/18 11:31 02/09/18 11:31 02/09/18 11:31 Laboratory Results 02/09/18 03:45 02/08/18 02/09/18 02/10/18 05:59 05:59 05:59 Intake Total 1100 1550 Output Total 3905 1394 364 [place]vyoboo -203 -5215 -425 - Physical Exam Constitutional: no apparent distress, chronically ill appearing Eyes: PERRL, anicteric sclera Ears, Nose, Mouth, Throat: moist mucous membranes, hearing normal Cardiovascular: regular rate and rhythym, no murmur, rub, or gallop Respiratory: no respiratory distress, no rales or rhonchi Gastrointestinal: normoactive bowel sounds, soft, non-tender abdomen, no palpable masses Genitourinary: no bladder fullness, No dumont in urethra Skin: warm, normal color Musculoskeletal: no muscle tenderness, No full muscle strength Neurologic: AAOx3 ICD10 Worksheet Patient Problems: Problems Problem Status Onset Chronic obstructive pulmonary disease with acute exacerbation Acute Open wound of right foot Acute chronic disease mgmt/transitional care Acute
--- NOTE | 2018-02-09 18:21 | GCON ---
NEW PATIENT CONSULTATION. PRIMARY ONCOLOGIST: Aki Cortez MD REQUESTING PHYSICIAN: Dr. Arias Koenig. REASON FOR CONSULTATION: Patient with known metastatic prostate cancer, admitted with acute on chronic CHF and fluid overload. HISTORY OF PRESENT ILLNESS: This is a very pleasant 82-year-old man with metastatic prostate cancer. He was noted a number years ago on routine imaging to have a cyst in the pancreas for which he saw Dr. Arias. More recently the cyst was about 3.2 cm in size. FNA showed no evidence of malignancy. However, MRCP that was performed to evaluate also revealed multiple sclerotic bone metastasis or bone lesions suspicious for cancer. A PSA was ordered and markedly elevated at 445. The patient was asymptomatic at presentation, did not have any bone pain, dysuria, urinary urgency or hesitancy or hematuria. He was noted a number years ago to have a mildly elevated PSA at 8, but was never acted upon. A bone scan showed extensive metastasis. CT showed many bone metastasis and few enlarged pelvic nodes, but no other visceral disease. He started on therapy with Zytiga and Lupron in June 2017. In September, he developed some right hip pain. MRI showed a stress fracture of the medial right femoral neck and diffusely abnormal appearing marrow due to metastatic disease. He saw an orthopedist at [facility], who did not think he needed surgery. He last saw Aki Cortez 01/30/2018. A CT was done around that time showing sclerosis of previously noted bone lesions but no new disease. He had reported at that visit more dyspnea on exertion, though he denied orthopnea or shortness of breath at rest. He has known COPD and followed by Dr. Martinez and known CHF, as well as peripheral vascular disease. Dr. Cortez has dose reduced his Zytiga due to fluid retention in the past and also tried oral Lasix that did not really seem to help the patient per outpatient notes. Most recent PSA in January was 19.4. Labs were unremarkable except for chronic anemia with hemoglobin of 10.1, hematocrit 31.1, potassium was 4.2, LFTs unremarkable. The patient was admitted to the ED with shortness of breath on 02/07/2018. Reports increased swelling over the past few days along with shortness of breath. Denied chest pain or chest pressure. Notes weight gain. thought his weight was stable. Endorsed cough. Denied fevers or chills. His BNP was greater than 5000. His chest x-ray looks like vascular edema. He had an intermediate V/Q scan. CTA showed no acute PE, trace left pleural effusion, central lobular emphysema, indeterminate 2 mm right lower lobe nodule, diffuse osseous metastatic disease. Abdomen and pelvic CTA showed increase in size of infrarenal abdominal aortic aneurysm measuring 7.6 x 7.3. Pancreatic duct cyst present which again was there previously. Bilateral trace effusions. The patient is currently being diuresed and blood pressure being managed. He is on somewhat of a stress dose of steroid as he is on 5 mg at home. He also receives Xgeva and prednisone 5 mg daily as part of his treatment. Zytiga was 500 mg a day. Last received Xgeva January 2018, received Lupron December of 2017, which he gets every 3 months. REVIEW OF SYSTEMS: Other than fluid retention, dyspnea on exertion, 14-point review of systems are negative. PAST MEDICAL HISTORY: Coronary artery disease, COPD, hypertension, hyperlipidemia, peripheral artery disease. He had endovascular repair of abdominal aneurysm 2011, leak repaired in March 2015, prostate cancer with osseous metastasis, anemia, CKD. SURGICAL HISTORY: Appendectomy, coronary stents x2, 2005, left LADONNA, AAA endovascular repair 2011, lumbar spine stenosis repair. FAMILY HISTORY: Not pertinent. SOCIAL HISTORY: Former smoker. Lives independently with his who is at bedside along with daughter. PHYSICAL EXAM: VITAL SIGNS: Today, blood pressure 107/57, heart rate 74, respiration rate 16, saturating 95% on 1 L nasal cannula. Temp 36.7. GENERAL: He is an elderly man not in acute distress. Alert, oriented. HEENT: Anicteric. Oropharynx is clear. HEART: Regular rate and rhythm. LUNGS: Decreased breath sounds at bases, but mild. ABDOMEN: Obese. EXTREMITIES: Lower extremities show 3+ edema, leaking wound on right lower extremity is bandaged. ASSESSMENT AND PLAN: An 82-year-old man with coronary artery disease, ischemic cardiomyopathy with congestive heart failure, chronic obstructive pulmonary disease, peripheral vascular disease with previous abdominal aortic aneurysm endovascular repair, and metastatic prostate cancer, admitted with worsening dyspnea and fluid retention. 1. Worsening dyspnea and fluid retention, acute on chronic congestive heart failure, diuresing well. Weight stable. Continue IV Lasix. Appreciate Cardiology. We went over the fact that Zytiga is likely the culprit of fluid retention as this can be present in up to 30% of patients on this drug. In fact , patients that had a left ventricular ejection fraction less than 50% were excluded from clinical trials getting the drug approved. This drug is known to cause hypertension, hyperkalemia and fluid retention. It is used w caution in patients w cardiovascular disease. The increased mineral coracoid due to CYP17 inhibition can lead to all these issues. The concomitant administration with corticosteroid (which he has been taking) reduces this incidence and severity. However, still a possibility. I told the that we would hold Zytiga for now , allow him to recover. Continue Lupron and Xgeva and we will address as outpatient. There are other options that are less likely to cause edema. However, not without risks or side effects. 2. Peripheral vascular disease, abdominal aortic aneurysm, coronary artery disease, and hypertension per Cardiology. 3. Metastatic prostate cancer. This is first-line therapy. He is on holding Zytiga and continue Lupron, Xgeva, will follow up as outpatient. 4. Anemia, chronic, likely due to the prostate cancer as well as multiple medical issues. This is very stable. We will notify Dr. Cortez of patient's admission. More than 45 minutes spent with patient, more than 50% of time counseling, coordinating care, and discussing with family at bedside. Plan to see as outpt but if further questions, don't hesitate to call /[id number]/MODL MTDD
[2018-02-10] MEDS: BUDESONIDE/FORMOTEROL 80/4.5 60 PUFFS/MDI IH SCH ×2 (05:37→20:22)
[2018-02-10] MEDS: IPRATROPIUM/ALBUTEROL 3 ML DEYVIAL IH SCH ×4 (05:38→20:36)
[2018-02-10] MEDS: LEVOTHYROXINE 100 MCG TAB PO SCH (06:01)
[2018-02-10] MEDS: guaiFENesin 600 MG TAB.ER PO SCH ×2 (08:00→20:50)
[2018-02-10] MEDS: ATORVASTATIN CALCIUM 40 MG TAB PO SCH (08:00)
[2018-02-10] MEDS: DOXYCYCLINE HYCLATE 100 MG CAP/TAB PO SCH ×2 (08:01→20:50)
[2018-02-10] MEDS: predniSONE 20 MG TAB PO SCH (08:01)
[2018-02-10] MEDS: FUROSEMIDE 40 MG/4 ML VIAL IVP SCH (08:01)
[2018-02-10] MEDS: BISOPROLOL FUMARATE 5 MG TAB PO SCH (08:13)
[2018-02-10] MEDS ORDERED: REGADENOSON 0.4 MG/5 ML SYR IVP ONE (09:12)
--- NOTE | 2018-02-10 10:22 | PDCARST ---
CAR Stress Test Results Type of Stress Test: Lexiscan stress test Indication: CAD/CHF/VT Description of Procedure: After informed consent was obtained, pt was established to ECG, blood pressure, HR and oximetry monitoring. STRESS EKG AND HEMODYNAMIC DATA. Resting heart rate:71 BPM. Resting ECG: SR, delayed RWP, 1st deg AVB, PVC. Resting blood pressure: 122/78 mmHg. O2 saturation at rest : 96%. Peak heart rate: 80 BPM. Peak blood pressure: 118/76 mmHg. Arrhythmias: PVCs. Symptoms: The patient experienced no typical symptoms of angina during stress or recovery. . Stress/Infusion ECG: No change in rhythm with no significant ST/T wave changes. Stress/infusion O2 saturation: 97% Impression: Uneventful Lexiscan infusion Conclusion: Await nuclear images.
[2018-02-10] MEDS ORDERED: POTASSIUM CL 10 MEQ TAB PO ONE ×2 (10:52→19:28)
--- NOTE | 2018-02-10 12:35 | CPEKG ---
Test Reason : OPEN Blood Pressure : / mmHG Vent. Rate : 072 BPM Atrial Rate : 072 BPM P-R Int : 206 ms QRS Dur : 085 ms QT Int : 422 ms P-R-T Axes : 077 047 000 degrees QTc Int : 462 ms Sinus rhythm Low voltage, extremity leads Diffuse ST-T wave abnormalities -- More pronounced since February 07, 2018 Consider old anteroseptal myocardial infarction Confirmed by Bart Rolle ([id number]) on 02/10/2018 12:34:45 PM Referred By: Confirmed By:Bart Rolle
--- NOTE | 2018-02-10 13:02 | PDCARPN ---
Cardiology Progress Note Chief Complaint: SCHF/edema/dyspnea Assessment/Plan: Assessment: 82M PMH CAD with PCI to LCx/OM in 2005; ICM with EF typically in 40s%; htn; overweight BMI 28; COPD; PVD with AAA and endovascular repair in 2011 and leak repair in 2016; prostate CA with osseous mets; anemia; frequent PVCs; CKD; now admitted with worsening dyspnea. This AM, he had a 16-beat run of WCT, likely VT. Echo from this admission shows stable/low normal EF, inferior HK, mild MR/AR. EKG shows SR, borderline QTC prolongation, 1st degree AVB, and dleayed RWP #. SCHF: acute on chronic diuresing well will continue IV Lasix for today follow BUN/Cr closely #. AAA: we discussed that he is overdue for a repeat CTA this was done yesterday/this shows Type II endoleak with some enlargement Dr. Koenig has consulted Ardon he requests copy of report be sent to Dr. Jimmy Amos at [facility] #. CAD: no symptoms suggestive of angina MPI pending #. VT: continue Bisoprolol and await nuc results #. htn: BP improved we reviewed goals of BP in SCHF defer resumption of Enalapril in setting of elevated Cr #. CKD: Cr 1.7 today with b/l 1.5-1.7 #. R foot dorsal blister due to edema will continue diuresis refer to wound clinic at time of discharge to follow on wound care #. metastatic prostate CA QTC prolongation can be seen with Lupron Edema can be seen with Zytiga Hypertension, edema and hypocalcemia may be seen with Xgeva reviewed Dr. Koroma's onc consult and appreciate her input/ Zytiga being held #. PVCs: frequent on monitoring increase BB to see if we can decrease the frequency #. QTc prolongation: improved with addition of BB #. COPD: per hospital med Plan: - continue IV diuresis - await MPI results 02/10/18 12:55 Subjective: Feeling OK. Has ongoing peripheral edema, now L foot has blistering. No cp. Dyspnea improved. Frustrated with the frequent urination. Reviewed/Discussed With: hospitalist (Dr. Koenig) Objective: Vital Signs (8 Hrs) Temp Pulse Resp BP Pulse Ox 02/10/18 12:01 73 20 94 02/10/18 07:24 97.7 F 81 82 H 111/94 H 99 02/10/18 05:39 16 94 Intake/Output (24 Hrs) 02/09/18 02/10/18 02/11/18 05:59 05:59 05:59 Intake Total 1550 790 Output Total 3325 2350 175 Balance -1775 -1560 -175 Intake: Oral (ml) 1500 790 IV Infused (ml) 50 Magnesium Sulf 2 gm/Water 50 50 ml @ 50 mls/hr IV ONCE ONE Rx#:[id number] Output: Urine (ml) 3325 2350 175 Incontinence 1050 500 Toilet 300 Urinal 1975 1850 175 Other: Weight 88.6 kg 87.8 kg Intake Quantity Yes Sufficient Output Comment Urinal some incontinence also Number of Voids Incontinence 3 2 Urinal 1 1 1 Result Diagrams: 02/07/18 09:30 02/10/18 03:47 Cardiac Labs: Cardiac Lab Results (72 Hrs) 02/07/18 16:40 Troponin I 0.131 H Telemetry: reviewed - Physical Exam Constitutional: no apparent distress Eyes: anicteric sclera Ears, Nose, Mouth, Throat: moist mucous membranes Cardiovascular: regular rate and rhythm Respiratory: reduced air movement, expiratory wheeze Gastrointestinal: normoactive bowel sounds Skin: other (severe pedal edema with erythema) Neurologic: AAOx3, CN II-XII grossly intact Psychiatric: cooperative, interactive ICD10 Worksheet Patient Problems: Problems Problem Status Onset Chronic obstructive pulmonary disease with acute exacerbation Acute Open wound of right foot Acute chronic disease mgmt/transitional care Acute
--- NOTE | 2018-02-10 14:56 | ASMTCMCOM ---
CM Note CM Note Notes: CM spoke to Dr. Koenig regarding d/c POC and Jaqui, RN. PT is recommending HC. Pt will also need a wound care nurse. CM met w/ pt and for dispo planning. CM provided list of HC agencies. [facility] has been chosen. [facility] is able to accept. Shelbi from [facility] stopped by and met w/ pt. CM had Dr. Koenig sign prescription for wound care supplies. CM faxed the prescription and a copy is in pts chart. CM to follow. Plan: [facility]; PT, RN Date Signed: 02/10/2018 02:55 PM Electronically Signed By:WES Sandoval
[2018-02-10] MEDS ORDERED: FUROSEMIDE 100 MG/10 ML VIAL IVP SCH (15:00)
--- NOTE | 2018-02-10 16:11 | HOSPPROG ---
Hospitalist Progress Note Assessment/Plan: 82 yo M w multiple comorbidities a/w dyspnea Dyspnea / AHRF - 3 LPM. Treating for acute sHF and COPD. CTA neg for PE. -cont IV Lasix, monitor I&O's, daily wts -cont nebs, prednisone, doxy (5 days of those) CAD / ICM - prior stent in 2007, EF previously 43%, now 50-55% -cont ASA, statin, BB -defer bernard for now with NOHEMI -lexiscan w ld infarct, no new ischemia -cards following NSVT: trop at baseline stress test w no new ischemia continue BB code: currently full discussed risks/benefits LE edema - suspect 2/2 HF. Zytiga can also cause this, which is held -echo, diuresis as above -wound care for rt foot open blister, no e/o infection NOHEMI / CKD - Prior to 09/2017, Cr was normal, but has risen to baseline of 1.7-2 since then, currently 1.5 -monitor closely with diuretics and contrast -avoid nephrotoxins Hypertension - controlled -cont BB Hyperlipidemia - cont statin Prostate cancer with osseous mets - prior femoral head stress fracture -holding zytiga for now -alerted Dr. Cortez of admission, ok to call him with questions, but o/w can have outpt f/u with onc AAA - s/p endovascular [place] [address] Amos, possible endoleak noted on previous CTA in 2016, with thrombosed sac up to 7.4 cm, asymptomatic -repeat CTA shows slightly enlarging sac, no clear leak, although no non con images non con image in 1-2 days to see if leak. RP bleed: no sx per radiology, unlikely to be related to AAA. multiple interventions noted spoke w dr dickinson- he does not think it os from leaking AAA repair, nor does radiology cyst: has been biopsied in past d/w dr payne if growing, probably warrants re biopsy that said, he is almost certainly not candidate for surgery if CA Subjective: case d/w yoan willis cardiology PA. 16 beats NSVT on tele Objective: Vital Signs Temp Pulse Resp BP Pulse Ox 36.8 C 69 18 104/71 96 02/10/18 13:13 02/10/18 13:13 02/10/18 13:13 02/10/18 13:13 02/10/18 13:13 Laboratory Results 02/10/18 03:47 02/09/18 02/10/18 02/11/18 05:59 05:59 05:59 Intake Total 1550 790 Output Total 6299 1083 287 Balance -1775 -1560 -475 - Physical Exam Constitutional: no apparent distress, appears nourished Eyes: PERRL, anicteric sclera Ears, Nose, Mouth, Throat: moist mucous membranes, hearing normal Cardiovascular: regular rate and rhythym, no murmur, rub, or gallop, edema Respiratory: no respiratory distress, no rales or rhonchi Gastrointestinal: normoactive bowel sounds, soft, non-tender abdomen Genitourinary: no bladder fullness, No dumont in urethra Skin: warm, normal color Musculoskeletal: No full muscle strength Neurologic: AAOx3 ICD10 Worksheet Patient Problems: Problems Problem Status Onset Chronic obstructive pulmonary disease with acute exacerbation Acute Open wound of right foot Acute chronic disease mgmt/transitional care Acute
[2018-02-10] MEDS ORDERED: FUROSEMIDE 100 MG/10 ML VIAL IVP ONE (16:15)
[2018-02-11] MEDS: IPRATROPIUM/ALBUTEROL 3 ML DEYVIAL IH SCH ×4 (05:32→21:01)
[2018-02-11] MEDS: LEVOTHYROXINE 100 MCG TAB PO SCH (06:44)
[2018-02-11] MEDS ORDERED: MAGNESIUM SULF 1 GM/DEXTROSE 100 ML IV ONE (08:07)
[2018-02-11] MEDS ORDERED: POTASSIUM CL 10 MEQ TAB PO ONE (08:08)
[2018-02-11] MEDS: ATORVASTATIN CALCIUM 40 MG TAB PO SCH (08:19)
[2018-02-11] MEDS: predniSONE 20 MG TAB PO SCH (08:19)
[2018-02-11] MEDS: DOXYCYCLINE HYCLATE 100 MG CAP/TAB PO SCH ×2 (08:20→20:54)
[2018-02-11] MEDS: guaiFENesin 600 MG TAB.ER PO SCH ×2 (08:20→20:53)
[2018-02-11] MEDS: BISOPROLOL FUMARATE 5 MG TAB PO SCH (08:20)
--- NOTE | 2018-02-11 08:41 | SOAPPROG ---
SOAP Progress Note Assessment/Plan: Assessment: 82 y/o man with multiple medical issues including: COPD, AAA s/p ELG with chronic leak, CAD with ischemic CHF LVEF 52%, metastatic prostate cancer and CRI with serum creatine of 1.6. He has diuresed 7lbs since admission but still a little hypervolemic and he feels "not yet at baseline." Tele with NSR with 17beat run of NSVT or afib with aberrancy. PLAN: 1)Lasix 60mg IV x one now and start on Demadex 40mg PO qday with afternoon dose today 2)stop Bisoprolol 3)start Toprol XL 25mg PO qam. 4)replace K+ 4.0-5.0 5)try to wean down PO Prednisone dose which I think is contributing to his volume overload. 6)labs in AM (CBC, BMP and BNP level). 7)possibly home Tuesday with close follow up with PCP and [facility] CHF clinic. 02/11/18 08:38 Subjective: feels better. Less leg edema and less shortness of breath. Denies CP, palpitations or syncope. Objective: Vital Signs Temp Pulse Resp BP Pulse Ox 36.9 C 84 20 109/74 96 02/11/18 07:25 02/11/18 07:25 02/11/18 07:25 02/11/18 07:25 02/11/18 07:25 Laboratory Results 02/11/18 03:38 02/10/18 02/11/18 02/12/18 05:59 05:59 05:59 Intake Total 790 1250 Output Total 2350 1775 300 Balance -1560 -525 -300 Physical Exam - Physical Exam General Appearance: alert, obese EENT: normal ENT inspection Neck: non-tender Respiratory: lungs clear, prolonged expiration (c/w COPD) Cardiac/Chest: regular rate, rhythm, JVD (jvp to 8cm.), systolic murmur, No gallop Peripheral Pulses: 1+: femoral (R), femoral (L), dorsalis-pedis (R), dorsalis- pedis (L), 2+: carotid (R), carotid (L) Abdomen: non-tender, No rebound, No ascites Skin: warm/dry Extremities: pedal edema Neuro/Psych: alert ICD10 Worksheet Patient Problems: Problems Problem Status Onset Chronic obstructive pulmonary disease with acute exacerbation Acute Open wound of right foot Acute chronic disease mgmt/transitional care Acute
[2018-02-11] MEDS ORDERED: FUROSEMIDE 100 MG/10 ML VIAL IVP ONE (08:43)
[2018-02-11] MEDS: BUDESONIDE/FORMOTEROL 80/4.5 60 PUFFS/MDI IH SCH ×2 (09:12→21:01)
[2018-02-11] MEDS: POTASSIUM CL 20 MEQ TAB PO SCH ×2 (09:33→20:53)
[2018-02-11] MEDS: TORSEMIDE 20 MG TAB PO SCH (13:52)
--- NOTE | 2018-02-11 15:04 | HOSPPROG ---
Hospitalist Progress Note Assessment/Plan: 82 yo M w multiple comorbidities a/w dyspnea Dyspnea / AHRF - 3 LPM. Treating for acute sHF and COPD. CTA neg for PE. -cont IV Lasix, monitor I&O's, daily wts s/p 5 days pred/abx good air movement CAD / ICM - prior stent in 2007, EF previously 43%, now 50-55% -cont ASA, statin, BB -defer bernard for now with NOHEMI -lexiscan w ld infarct, no new ischemia -cards following NSVT: trop at baseline stress test w no new ischemia continue BB code: currently full discussed risks/benefits LE edema - suspect 2/2 HF. Zytiga can also cause this, which is held -echo, diuresis as above -wound care for rt foot open blister, no e/o infection NOHEMI / CKD - Prior to 09/2017, Cr was normal, but has risen to baseline of 1.7-2 since then, currently 1.5 -monitor closely with diuretics and contrast -avoid nephrotoxins Hypertension - controlled -cont BB Hyperlipidemia - cont statin Prostate cancer with osseous mets - prior femoral head stress fracture -holding zytiga for now -alerted Dr. Cortez of admission, ok to call him with questions, but o/w can have outpt f/u with onc AAA - s/p endovascular [place] [address] Amos, possible endoleak noted on previous CTA in 2016, with thrombosed sac up to 7.4 cm, asymptomatic -repeat CTA shows slightly enlarging sac, no clear leak, although no non con images non con image in 1-2 days to see if leak. RP bleed: no sx per radiology, unlikely to be related to AAA. multiple interventions noted spoke w dr dickinson- he does not think it os from leaking AAA repair, nor does radiology cyst: has been biopsied in past d/w dr payne if growing, probably warrants re biopsy that said, he is almost certainly not candidate for surgery if CA Objective: Vital Signs Temp Pulse Resp BP Pulse Ox 36.9 C 79 18 125/39 H 92 02/11/18 07:25 02/11/18 11:04 02/11/18 11:04 02/11/18 11:04 02/11/18 11:04 Laboratory Results 02/11/18 03:38 02/10/18 02/11/18 02/12/18 05:59 05:59 05:59 Intake Total 790 1250 371 Output Total 5643 1952 500 Balance -1560 -525 -129 - Physical Exam Constitutional: no apparent distress, appears nourished Eyes: PERRL, anicteric sclera Ears, Nose, Mouth, Throat: moist mucous membranes, hearing normal Cardiovascular: regular rate and rhythym, no murmur, rub, or gallop Respiratory: no respiratory distress, no rales or rhonchi Gastrointestinal: normoactive bowel sounds, soft, non-tender abdomen Genitourinary: no bladder fullness, No dumont in urethra Skin: warm, normal color Musculoskeletal: full muscle strength, no muscle tenderness Neurologic: AAOx3 ICD10 Worksheet Patient Problems: Problems Problem Status Onset Chronic obstructive pulmonary disease with acute exacerbation Acute Open wound of right foot Acute chronic disease mgmt/transitional care Acute
[2018-02-11] MEDS: METOPROLOL SUCCINATE XR 25 MG TAB PO SCH (18:02)
[2018-02-12] MEDS: IPRATROPIUM/ALBUTEROL 3 ML DEYVIAL IH SCH ×2 (06:10→10:24)
[2018-02-12] MEDS: LEVOTHYROXINE 100 MCG TAB PO SCH (06:24)
[2018-02-12] MEDS: METOPROLOL SUCCINATE XR 25 MG TAB PO SCH (09:11)
[2018-02-12] MEDS: TORSEMIDE 20 MG TAB PO SCH (09:11)
[2018-02-12] MEDS: guaiFENesin 600 MG TAB.ER PO SCH (09:11)
[2018-02-12] MEDS: POTASSIUM CL 20 MEQ TAB PO SCH (09:12)
[2018-02-12] MEDS: ATORVASTATIN CALCIUM 40 MG TAB PO SCH (09:13)
--- NOTE | 2018-02-12 09:17 | SOAPPROG ---
SOAP Progress Note Assessment/Plan: Assessment: 82 y/o man with multiple medical issues including: COPD, AAA s/p ELG with chronic leak, CAD with ischemic CHF LVEF 52%, metastatic prostate cancer and CRI with serum creatine of 1.6. He has diuresed 8 lbs since admission. He is still a little hypervolemic but I think will continue to diurese on PO Demadex. PLAN: 1)no change in current meds. 2)okay to discharge home from CHF standpoint today. 3)has already appt with me this tuesdayFeb 15. Will repeat labs two hours before appt (CBC, BMP and BNP level). 02/12/18 09:14 Subjective: feels a little better. Still leg edema but improving. Denies CP, palpitations or syncope or PND. Objective: Vital Signs Temp Pulse Resp BP Pulse Ox 36.9 C 74 18 130/66 H 90 L 02/12/18 07:30 02/12/18 07:30 02/12/18 07:30 02/12/18 07:30 02/12/18 07:30 Laboratory Results 02/12/18 07:59 02/12/18 07:59 02/11/18 02/12/18 02/13/18 05:59 05:59 05:59 Intake Total 1250 1581 Output Total 1775 2450 160 Balance -525 -869 -160 Physical Exam - Physical Exam General Appearance: alert, obese EENT: normal ENT inspection Neck: full range of motion Respiratory: other (poor E:A ratio consistent with COPD. No wheezes or rales heard.) Cardiac/Chest: regular rate, rhythm, systolic murmur (1/6 LAVELLE heard), No gallop , No JVD Peripheral Pulses: 1+: femoral (R), femoral (L), dorsalis-pedis (R), dorsalis- pedis (L), 2+: carotid (R), carotid (L) Abdomen: non-tender, No guarding, No rebound, No ascites Skin: warm/dry Extremities: pedal edema Neuro/Psych: alert ICD10 Worksheet Patient Problems: Problems Problem Status Onset Chronic obstructive pulmonary disease with acute exacerbation Acute Open wound of right foot Acute chronic disease mgmt/transitional care Acute
[2018-02-12] MEDS: BUDESONIDE/FORMOTEROL 80/4.5 60 PUFFS/MDI IH SCH (10:30)
--- NOTE | 2018-02-12 11:26 | HOSPPROG ---
Hospitalist Progress Note Assessment/Plan: 82 yo M w multiple comorbidities a/w dyspnea Dyspnea / AHRF - 3 LPM. Treating for acute sHF and COPD. CTA neg for PE. -cont IV Lasix, monitor I&O's, daily wts s/p 5 days pred/abx good air movement CAD / ICM - prior stent in 2007, EF previously 43%, now 50-55% -cont ASA, statin, BB -defer bernard for now with NOHEMI -lexiscan w ld infarct, no new ischemia -cards following NSVT: trop at baseline stress test w no new ischemia continue BB code: currently full discussed risks/benefits LE edema - suspect 2/2 HF. Zytiga can also cause this, which is held -echo, diuresis as above -wound care for rt foot open blister, no e/o infection NOHEMI / CKD - Prior to 09/2017, Cr was normal, but has risen to baseline of 1.7-2 since then, currently 1.5 -monitor closely with diuretics and contrast -avoid nephrotoxins Hypertension - controlled -cont BB Hyperlipidemia - cont statin Prostate cancer with osseous mets - prior femoral head stress fracture -holding zytiga for now -alerted Dr. Cortez of admission, ok to call him with questions, but o/w can have outpt f/u with onc AAA - s/p endovascular [place] [address] Amos, possible endoleak noted on previous CTA in 2016, with thrombosed sac up to 7.4 cm, asymptomatic -repeat CTA shows slightly enlarging sac, no clear leak, although no non con images non con image in 1-2 days to see if leak. RP bleed: no sx per radiology, unlikely to be related to AAA. multiple interventions noted spoke w dr dickinson- he does not think it os from leaking AAA repair, nor does radiology cyst: has been biopsied in past d/w dr payne if growing, probably warrants re biopsy that said, he is almost certainly not candidate for surgery if CA home today > 30 minutes Subjective: ready for dc Objective: Vital Signs Temp Pulse Resp BP Pulse Ox 36.9 C 74 16 130/66 H 90 L 02/12/18 07:30 02/12/18 10:34 02/12/18 10:34 02/12/18 07:30 02/12/18 10:34 Laboratory Results 02/12/18 07:59 02/12/18 07:59 02/11/18 02/12/18 02/13/18 05:59 05:59 05:59 Intake Total 1250 1581 Output Total 0936 5662 160 Balance -113 -869 -160 - Physical Exam Constitutional: no apparent distress, appears nourished Eyes: PERRL, anicteric sclera Ears, Nose, Mouth, Throat: moist mucous membranes, hearing normal Cardiovascular: regular rate and rhythym, no murmur, rub, or gallop Respiratory: no respiratory distress, no rales or rhonchi Gastrointestinal: normoactive bowel sounds, soft, non-tender abdomen Genitourinary: No dumont in urethra Skin: warm, normal color Musculoskeletal: full muscle strength Neurologic: AAOx3 ICD10 Worksheet Patient Problems: Problems Problem Status Onset Chronic obstructive pulmonary disease with acute exacerbation Acute Open wound of right foot Acute chronic disease mgmt/transitional care Acute
--- NOTE | 2018-02-12 11:27 | PDHOMEO2F ---
Home Oxygen Face to Face Home Orders: I certify that a physician or a nurse practitioner or physician's cataloging assistant has had a [id number] encounter with this patient on the date of this order due to the diagnosis listed, which relates to the primary reason the patient requires home oxygen. Alternative treatments have been tried, or considered, and deemed ineffective. It is anticipated that supplemental oxygen will result in improvement with treatment. Home oxygen qualifying diagnosis: sCHF SpO2 on room air (%): 87 Frequency of home oxygen needed: continuous Home oxygen liters per minute: 2 Home oxygen delivery device: nasal cannula Concentrator: No E-tanks for mobility and back up: Yes If ordering portable O2, is the patient mobile in the home?: Yes I certify that, based on these findings, the home oxygen is medically necessary for this patient for the following length of time. Length of time home oxygen needed: 1 month
[2018-02-12 12:02] VITALS: BP 135/57
--- NOTE | 2018-02-12 12:25 | GDS ---
DISCHARGE DIAGNOSES: 1. Prostate cancer: On Xgeva, Zytiga, and Lupron. 2. Ischemic cardiomyopathy, with systolic heart failure exacerbation. 3. History of abdominal aortic aneurysm, slightly bigger. 4. History of cystic lesion in the pancreas, with negative biopsies. 5. History of chronic obstructive pulmonary disease, with acute exacerbation. 6. Acute hypoxemic respiratory failure. 7. Nonsustained ventricular tachycardia, with low normal ejection fraction. 8. Acute kidney injury, now resolved. 9. Edema. HOSPITAL COURSE: Please see admission history and physical by Dr. Annita Loaiza. The patient presen ranjit with increasing lower extremity edema. He has been ruled out for pulmonary embolism. He was diu resed during this hospital stay and seen by Cardiology. His presenting weight was 90 kg. He has diu resed down to less than 87 with improvement in his renal function. His creatinine was 1.6 on presentation. It stayed steady at 1.6. Regarding his abdominal aortic aneurysm, he had a repeat CT, which showed slightly enlarged abdominal aortic aneurysm. This has been repaired twice by Dr. Jimmy Amos in [place]. There was a retroperiton eal bleed that was felt not attributable to the AAA and it was not consistent with leaking. There wa s a discussion of getting a repeat noncontrast image in a couple of days; however, the patient is dis charged today with outpatient followup with Dr. Amos. He had a retroperitoneal bleed that is felt in both by Radiology and Dr. Jose Ardon, not consisten t with leakage from his triple AAA. His aspirin was held, but will restart on discharge. There is some question that Zytiga is contributing to his lower extremity edema as this is a known si de effect. It is discontinued and held until on followup. The patient has COPD exacerbation and received 5 days of prednisone and antibiotics with good air mov ement. He is discharged home on 3 L of oxygen, which is a new thing for him, hence the diagnosis of acute hypoxemic respiratory failure. He had a Lexiscan with old infarct and no new ischemia. /[id number]/MODL
[2018-02-12] MEDS ORDERED: POTASSIUM CL 10 MEQ TAB PO ONE (12:35)
--- NOTE | 2018-02-12 20:21 | ASMTLACE ---
LACE Length of stay for Answers: 4-6 days current admission Acuity / Level of Answers: Yes Care: Did the patient have an inpatient admission? Comorbidities - select Answers: Any tumor (including all that apply lymphoma or leukemia) Chronic pulmonary disease Coronary Artery Disease Moderate or severe liver or renal disease Other Notes: Hypothyroid; HTN # of Emergency department Answers: 1-2 visits in the last 6 months Score: 19 Date Signed: 02/12/2018 08:21 PM Electronically Signed By:Johana Blue RN
--- NOTE | 2018-02-12 20:31 | ASMTDCNOTE ---
Case Management Discharge Discharge Order Complete? Answers: Yes Patient to Obtain Answers: via Family Medications Transportation Arranged Answers: Family/Friends Transport will Pick (Date 02/12/2018 12:00 AM & Time) EMTALA Complete Answers: No Notes: N/A Case Management Transport Answers: No Notes: N/A Form Complete Faxed Final Orders Answers: Yes Notes: Sent manually and via [employer]; confirmed receipt with [facility] Agency/Facility Transfer Answers: Yes Notes: Sent manually and via Report Printed & Faxed to [facility]; confirmed Receiving Agency receipt with [facility] Family Notified Answers: Yes Notes: Family at bedside Discharge Comments Notes: Reviewed chart, spoke with VALDO Donahue regarding discharge plan of care, pt's progress. Pt to discharge home today with home sammy care. Per prior CM notes, pt set up to discharge with [facility] (RN/PT services). Address and phone number previously verified. Call placed to [facility] to confirm acceptance and start of care for Tuesday02/13/18. [facility] confirmed start of care for Tuesday. Discharge notes and paperwork sent via manual fax to d/t [employer] downtime. Resent via [facility] this evening. Multiple messages sent to Dr. Arias Koenig requesting discharge orders for [facility] ([facility] form). No orders received. LVM for Ivette Barbosa, Surveying Teacher of CM to follow up on orders Tuesday02/13/18. No IM signed, pt left prior to signing. Pt to follow up as directed. CM available for any further issues or concerns. Discharge Plan: Home with [facility] (RN/PT services) Date Signed: 02/12/2018 08:31 PM Electronically Signed By:Johana Blue RN
--- NOTE | 2018-02-13 08:35 | PDIAF ---
- Diagnosis Diagnosis: sCHF Code Status: Full Code - Medication Management Discharge Medications: electronically signed and located in the Home Medication List. - Orders Services needed: Home Care, Physical Therapy Home Care Face to Face: I certify that this patient was under my care and that I had the required [id number] encounter meeting the encounter requirements on the discharge day. My findings support the fact that the patient is homebound as defined in Home Care Face to Face Continued: CMS Chapter 7 Medicare Benefits Manual 30.1.1 , The condition of the patient is such that there exists a normal inability to leave home and consequently, leaving home would require a considerable and taxing effort. Additional Instructions: Please contact [facility] outpatient [facility] for an appointment, at , for follow up within 2-3 weeks. Right dorsal foot wound care: (this plan is if the drainage on the wound continues to be extensive. If the drainage slows down hydrogel may have to be added to the wound bed to maintain a moist state. Change every 2 days and as needed 1. Clean with ns and gauze or may clean in shower with soap and water. Rinse well. (if the wound is drying out please add hydrogel/wound gel before placing aquacel) 2. Cover with fenestrated Aquacel Ag+ 3. Cover Aquacel Ag+ with Softsorb 4. Secure with medipore tape then kerlix and netting Yane Gudino CWON - Follow Up Care Current Providers and Referrals: Pooja Kelsey PA [Physician Fashion Intern] - 02/22/18 10:15 am Harvey Aguirre MD [Medical Doctor] - 02/15/18 2:15 pm () Gavin Martinez MD [Medical Doctor] - 02/14/18 2:30 pm Shayy Kenny MD [Primary Care Provider] - 02/24/18 ()
--- NOTE | 2018-02-13 08:49 | ASDISCHSUM ---
Discharge Information Plan Status:Home with Home Health Medically Cleared to Leave:02/11/2018 Discharge Date:02/12/2018 03:17 PM CM D/C Disposition:Home Health Service ADT D/C Disposition:Home, Routine, Self-Care Projected Discharge Date:02/11/2018 11:00 AM Transportation at D/C:Family Discharge Delay Reason: Follow-Up Date:02/11/2018 11:00 AM Discharge Slot:2 - 12:01 pm - 18:00 pm Final Diagnosis:COPD exacerbation, prostate cancer Placement Information Referral Type:*Home Health Care Services Referral ID:[id number] Provider Name:[facility] [place] Address 1:[address] [place] [address] Address 2: City:[place] Selection Factors:Patient/Family Choice State:[place] Patient Contact Information Contact Name:FRANSISCA Relationship: Address:[address] City:[place] Alternate Phone: State/Zip Code:[place] [address] Email: Financial Information Financial Class:Medicare Primary Plan Desc:MEDICARE INPATIENT Primary Plan Number:[id number] Secondary Plan Desc:STARLA/GUILLE SUPPLEMENT Secondary Plan Number:[id number] Assessment Information LACE LACE Length of stay for Answers: 4-6 days current admission Acuity / Level of Answers: Yes Care: Did the patient have an inpatient admission? Comorbidities - select Answers: Any tumor (including all that apply lymphoma or leukemia) Chronic pulmonary disease Coronary Artery Disease Moderate or severe liver or renal disease Other Notes: Hypothyroid; HTN # of Emergency department Answers: 1-2 visits in the last 6 months Score: 19 Date Signed: 02/12/2018 08:21 PM Electronically Signed By:Johana Blue RN [facility] Progress Note CM Note CM Note Notes: Pt is a 82 y/o man admitted for shortness of breathe. Pt with a hx of COPD, CAD, ischemic cardiomyopathy. Pt is edematous. PT and wound care has been ordered. Needs are TBD at this time. CM to follow. Plan: TBD Date Signed: 02/08/2018 12:20 PM Electronically Signed By:WES Sandoval [facility] Progress Note CM Note CM Note Notes: CM spoke to Dr. Koenig regarding d/c POC and VALDO Nails. PT is recommending HC. Pt will also need a wound care nurse. CM met w/ pt and for dispo planning. CM provided list of HC agencies. [facility] been chosen. [facility] is able to accept. [facility] from [facility] stopped by and met w/ pt. CM had Dr. Koenig sign prescription for wound care supplies. CM faxed the prescription and a copy is in pts chart. CM to follow. Plan: [facility]; PT, RN Date Signed: 02/10/2018 02:55 PM Electronically Signed By:WES Sandoval Case Management Discharge Plan Note Case Management Discharge Discharge Order Complete? Answers: Yes Patient to Obtain Answers: via Family Medications Transportation Arranged Answers: Family/Friends Transport will Pick (Date 02/12/2018 12:00 AM & Time) EMTALA Complete Answers: No Notes: N/A Case Management Transport Answers: No Notes: N/A Form Complete Faxed Final Orders Answers: Yes Notes: Sent manually and via [facility]; confirmed receipt with [facility] Agency/Facility Transfer Answers: Yes Notes: Sent manually and via Report Printed & Faxed to [facility]; confirmed Receiving Agency receipt with [facility] Family Notified Answers: Yes Notes: Family at bedside Discharge Comments Notes: Reviewed chart, spoke with VALDO Donahue regarding discharge plan of care, pt's progress. Pt to discharge home today with home sammy care. Per prior CM notes, pt set up to discharge with Shravan Reilly (RN/PT services). Address and phone number previously verified. Call placed to [facility] to confirm acceptance and start of care for Tuesday02/13/18. [facility] confirmed start of care for Tuesday. Discharge notes and paperwork sent via manual fax to d/t [facility] downtime. Resent via [facility] this evening. Multiple messages sent to Dr. Arias Koenig requesting discharge orders for [facility] (Interagency form). No orders received. LVM for Ivette Barbosa, [employer] of to follow up on orders Tuesday02/13/18. No IM signed, pt left prior to signing. Pt to follow up as directed. CM available for any further issues or concerns. Discharge Plan: Home with [facility] (RN/PT services) Date Signed: 02/12/2018 08:31 PM Electronically Signed By:Johana Blue RN Intervention Information Intervention Type:IM-Pt. Not Available Date of Service:02/12/2018 08:32 PM Patient Type:Inpatient Staff Member:VALDO Blue Taylor Hours: Discipline: Severity: Comment:Pt left prior to signing.
== END 2018-02-12 15:17 | disposition home or self-care (01) | DRG 291 ==
LOC: F2W 13:40
PROVIDERS: ADMIT Hospitalist; ATTEND Hospitalist
DX: I13.0 Hypertensive heart and chronic kidney disease with heart failure and stage 1 through stage 4 chronic kidney disease, or unspecified chronic kidney disease (principal); I50.23 Acute on chronic systolic (congestive) heart failure; J96.21 Acute and chronic respiratory failure with hypoxia; J44.1 Chronic obstructive pulmonary disease with (acute) exacerbation; N17.9 Acute kidney failure, unspecified; N18.9 Chronic kidney disease, unspecified; I71.4 Abdominal aortic aneurysm, without rupture; I47.2 Ventricular tachycardia; C79.51 Secondary malignant neoplasm of bone; I73.9 Peripheral vascular disease, unspecified; E03.9 Hypothyroidism, unspecified; D63.8 Anemia in other chronic diseases classified elsewhere; I25.10 Atherosclerotic heart disease of native coronary artery without angina pectoris; M54.5 Low back pain; E78.5 Hyperlipidemia, unspecified; I25.2 Old myocardial infarction; Z87.891 Personal history of nicotine dependence; Z85.46 Personal history of malignant neoplasm of prostate; Z96.659 Presence of unspecified artificial knee joint; Z95.5 Presence of coronary angioplasty implant and graft
CPT/HCPCS: 84484-PO; 96374; 97116-GP; 97161-GP; A9500; A9540; A9558; G8978-GP-CJ; G8979-GP-CI; J1650; J1940; J2785; J2930; J3475; J7512; J7613; Q9967

== ENCOUNTER → 2018-03-29 | Outpatient (CLI) | payer OTHER, MEDICARE | LOC: FIMAGING 09:59 | PROVIDERS: ATTEND Internal Medicine Hematology & Oncology | DX: C79.51 Secondary malignant neoplasm of bone (principal); C61 Malignant neoplasm of prostate | CPT/HCPCS: 78306; A9503 ==

== ENCOUNTER 2018-05-19 19:15 | Emergency (ER) | payer OTHER, MEDICARE ==
--- NOTE | 2018-05-19 19:55 | EDPHY ---
General Time Seen by Provider: 05/19/18 19:54 Narrative: CLINICAL IMPRESSION: Left brow laceration, head injury ASSESSMENT/PLAN: Patient is an 83-year-old male with multiple comorbidities including metastatic prostate cancer who presents to the emergency department after sustaining a mechanical slip and fall while using his walker just prior to arrival. Patient is not toxic appearing, he is in no distress. Physical examination reveals 3 cm laceration superior to the left lateral brow. There is no evidence of deep structure involvement, neurovascular compromise, foreign body, or bony involvement. The wound was not contaminated, tetanus status was already up-to- date. The wound was irrigated and then repaired as discussed in the procedure note, the patient tolerated this well. CT was obtained secondary to concern for shear injury and underlying antiplatelet therapy. CT head revealed no evidence of intracranial hemorrhage or skull fracture. Wound care instructions discussed with patient and family member. He is well established with his PCP, they will call to schedule an appointment for suture removal in 5 days, he can return to the emergency department if he chooses. Return precautions discussed- he will return for increased pain, headache, visual changes, vomiting, focal weakness, ataxia, signs of infection, fever, vomiting, if the wound opens or for any other concerns. Patient and family member both verbalize understanding and are in agreement with plan. DIFFERENTIAL DIAGNOSIS: Includes but not limited to laceration of tendon or vascular structure, underlying fracture, laceration with retained FB. Head injury including but not limited to concussion, skull fracture, intraparenchymal contusion, subarachnoid, subdural and epidural hematoma. ED PROCEDURES: Laceration Repair Verbal consent obtained by patient. Risks discussed, including but not limited to infection, pain, retained foreign body, need for additional repair, poor cosmetic result, tendon damage, nerve damage, poor wound healing, vascular damage. Alternatives to repair discussed. Chandler protocol used to establish correct patient, procedure, equipment, human resources support specialist, and site. Anesthesia obtained by local infiltration. Anesthetized with 1% lidocaine with epinephrine. Laceration location superior left lateral brow, length 3 cm, depth 5 mm, Repair type intermediate. Patient was prepped and draped in usual sterile fashion. Hemostasis achieved with direct pressure. Wound explored through full range of motion and entire depth of wound probed and visualized with gloved finger. No suspicion for nerve damage, tendon damage, underlying fracture, vascular damage, foreign body, or contamination. Area was cleansed with Shur-Clens and irrigated with sterile saline as per protocol. No foreign body or material removed. Repair method deep layer closed with 5 0 PDS, superficially closed with 5 0 Prolene interrupted sutures. Six sutures placed. Well aligned, closely approximated. wound was dressed with antibiotic ointment. Patient tolerated well with no immediate complications. Wound care: Clean and dry x 24 hours, gently clean with soap and water, cover with topical antibiotic ointment/bandage. Suture/Staple removal: 5 Days CHIEF COMPLAINT: Laceration, head injury HPI: Patient is an 83-year-old male with multiple comorbidities including metastatic prostate cancer who presents to the emergency department after sustaining a mechanical fall after he slipped on a puddle of water. Patient reports he was using his walker as usual, he hit some water on the ground which caused him to slip hitting his left head on the concrete. This was witnessed by 3 people, there was no loss of consciousness. He was able to immediately get up. He is on aspirin, denies any other antiplatelet or anticoagulation. There was no loss of consciousness. He denies any headache, dizziness, visual changes or focal weakness. He denies any neck or back pain. Patient denies saddle paresthesias, lower extremity numbness, tingling, major motor weakness, urinary retention or bowel/bladder incontinence. He denies any other injury or complaint. He is up-to-date on his tetanus status. PAST MEDICAL HISTORY: COPD, hyperlipidemia, hypothyroidism, hypertension, metastatic prostate cancer Social History: Denies smoking, alcohol or illicit drug use REVIEW OF SYSTEMS: All other systems negative Constitutional: No fever, no chills Musculoskeletal: No deformity, no joint pain Skin: Eyebrow laceration Neurological: No sensory loss or weakness. PHYSICAL EXAM: General Appearance: Alert, oriented, appropriate for age, cooperative, NAD, well hydrated, non-toxic appearing, VSS, no hypoxia. Neurological: Alert and oriented x 3 HENT: Normocephalic, 3 cm laceration to the superior lateral left brow. External ears are normal, tympanic membranes are normal with pearly meadows reflex , no evidence of hemotympanum. Nares are clear, no nasal bridge tenderness. Oropharynx is clear, no dental trauma noted. No mandibular tenderness. No raccoon eyes or Mora sign. Eyes: PERRLA, EOMI intact without evidence of entrapment. Skin: As above Upper Extremities: Intact distal pulses, Full range of motion intact, no tenderness, or edema. Abrasion noted to the dorsal aspect of his left hand, very minor in appearance. There is no associated tenderness to palpation. There is also a small area of ecchymosis that is nontender to palpation. Lower Extremities: Intact distal pulses, No edema, No tenderness, No cyanosis, full range of motion intact, No calf tenderness bilaterally. MEDICAL DECISION MAKING: Patient was seen independently. Secondary supervising physician at time of evaluation was Dr. Ratliff, she did not evaluate this patient. Diagnosis: Head injury, brow laceration. New, requires workup Summary: See assessment and plan for summary of ED visit Clinical lab tests: Not applicable. Independent visualization of images, tracing, or specimens yes. Decision to obtain medical records or history from someone other than the patient: Yes, son and Review / Summarize previous medical records: Yes Discussed patient with another provider: Yes, Dr. Ratliff - Diagnostics Imaging Results: Imaging Impressions Head CT 05/19/18 20:05 Impression: 1. No acute intracranial findings. 2. Diffuse cerebral atrophy, with periventricular and subcortical low attenuation, consistent with chronic microvascular ischemic gliosis. 3. Diffuse sclerotic osseous metastases compatible with known metastatic prostate cancer. Findings discussed with MARITA Hollis, on May 19, 2018 at 2116. - History Smoking Status: Former smoker - Objective Vital Signs: Initial Vital Signs Temperature (C) 37.0 C 05/19/18 19:20 Heart Rate 90 05/19/18 19:20 Respiratory Rate 18 05/19/18 19:20 Blood Pressure 136/97 H 05/19/18 19:20 O2 Sat (%) 94 05/19/18 19:20 O2 Delivery Mode Nasal Cannula O2 (L/minute) 2 Allergies/Adverse Reactions: No Known Allergies Allergy (Verified 05/19/18 19:18) Home Medications: Medication Instructions Recorded Atorvastatin Calcium [Lipitor 40 40 mg PO DAILY 08/31/ mg (*)] Aspirin [Aspirin 81mg (*)] 81 mg PO HS 02/07/18 Budesonide/Formoterol 80/4.5 2 puffs IH BID 02/07/18 [Symbicort 80-4.5 Mcg Inhaler] Herbals/Supplements -Info Only 1 ea PO DAILY 02/07/18 Leuprolide Acetate [LUPRON DEPOT] 22.5 mg IM Q90D 02/07/18 Levothyroxine [Synthroid 100 mcg 100 mcg PO DAILY06 02/07/18 (*)] Tiotropium Inhaler [Spiriva 1 inh IH DAILY@12 02/07/18 Inhaler (RX)] Xgeva 1 each IJ Q30D 02/07/18 predniSONE 2.5 mg PO BID 02/07/18 Ipratropium/Albuterol [Duoneb (*)] 3 ml IH QID deyvial 02/12/18 Metoprolol Succinate Xr [Toprol Xl 25 mg PO DAILY #30 tab 02/12/18 25 mg (*)] Potassium Cl [Klor-Con 20 meq (*)] 20 meq PO BID #30 tab 02/12/18 Torsemide [Demadex] 40 mg PO DAILY AT 10AM #30 tab 02/12/18 Departure - Departure Disposition: Home, Routine, Self-Care Clinical Impression: Facial laceration Condition: Good Instructions: Laceration (ED) Additional Instructions: DISCHARGE INSTRUCTIONS FROM YOUR DOCTOR Thank you for visiting our emergency department today. Please keep in mind that discharge from the emergency department does not mean that there is nothing wrong - it simply means that we have not identified an emergency condition that requires further evaluation or treatment in the hospital. You should always plan to follow up with primary care for re-evaluation of your condition in the next 2-3 days. Keep wound clean and dry for 24 hours. Then remove dressing, clean at least twice daily or when soiled with soap and water, apply antibiotic ointment and dressing. Do not soak the wound while the stitches are in place. Anticipate suture removal in 5 days. Schedule a follow-up visit with your primary care physician or the emergency department for suture removal in 5 days and sooner for wound check for any concerns. Return for signs of wound infection ie: redness, swelling, drainage, foul odor, red streaks, fever, chills, pain, bleeding, if the stitches pop, if the wound opens or for any other new, worsening or worrisome symptoms. People present with illnesses and injuries in different ways, and it is always possible that we have missed something. You may always return for re-evaluation if symptoms worsen or if they are not improving or if you develop new/different symptoms. Again, thank you for choosing our emergency department. We hope that you feel better. Referrals: Shayy Kenny MD [Primary Care Provider] - 2-3 days, call for appt.
[2018-05-19 21:57] VITALS: BP 119/83
== END 2018-05-19 21:57 | disposition home or self-care (01) ==
PROC: 0HQ1XZZ Repair Face Skin, External Approach (ICD-10-PCS; principal; 2018-05-19)
DX: S01.81XA Laceration without foreign body of other part of head, initial encounter (principal); W01.198A Fall on same level from slipping, tripping and stumbling with subsequent striking against other object, initial encounter; Y92.480 Sidewalk as the place of occurrence of the external cause; J44.9 Chronic obstructive pulmonary disease, unspecified; E78.5 Hyperlipidemia, unspecified; E03.9 Hypothyroidism, unspecified; I10 Essential (primary) hypertension; Z85.46 Personal history of malignant neoplasm of prostate